=== PATIENT | female | born 1955 | race Caucasian/White ===

== ENCOUNTER → 2019-10-16 12:02 | Outpatient (BNVA) | payer MEDICARE, MEDICAID, SELFPAY | PROVIDERS: Family Provider Nurse Practitioner Family; PCP Nurse Practitioner Family; Visit Provider Nurse Practitioner Family | DX: E11.9 Type 2 diabetes mellitus without complications (principal); E03.9 Hypothyroidism, unspecified; E83.42 Hypomagnesemia; J01.90 Acute sinusitis, unspecified | CPT/HCPCS: 36415; 80053; 80061; 81001; 82306; 83036; 83735; 84443; 85025 ==

== ENCOUNTER → 2019-11-14 11:26 | Outpatient (BNVA) | payer MEDICARE, MEDICAID, SELFPAY | PROVIDERS: Family Provider Nurse Practitioner Family; PCP Nurse Practitioner Family; Visit Provider Nurse Practitioner Family | DX: E11.628 Type 2 diabetes mellitus with other skin complications (principal); F41.9 Anxiety disorder, unspecified | CPT/HCPCS: 80053 ==

== ENCOUNTER → 2020-01-22 09:37 | Outpatient (BNVA) | payer MEDICARE, MEDICAID, SELFPAY | PROVIDERS: Family Provider Nurse Practitioner Family; PCP Nurse Practitioner Family; Visit Provider Nurse Practitioner Family | DX: I10 Essential (primary) hypertension (principal); E11.9 Type 2 diabetes mellitus without complications | CPT/HCPCS: 80053; 83036; 85025 ==

== ENCOUNTER → 2020-01-29 10:05 | Outpatient (BNVA) | payer MEDICARE, MEDICAID, SELFPAY | PROVIDERS: Family Provider Nurse Practitioner Family; PCP Nurse Practitioner Family; Visit Provider Nurse Practitioner Family | DX: I10 Essential (primary) hypertension (principal); E83.42 Hypomagnesemia; E03.9 Hypothyroidism, unspecified; E11.628 Type 2 diabetes mellitus with other skin complications; J32.9 Chronic sinusitis, unspecified; J44.9 Chronic obstructive pulmonary disease, unspecified; T78.40XA Allergy, unspecified, initial encounter; B37.3 Candidiasis of vulva and vagina | CPT/HCPCS: 36415; 83735; 84439; 84443; 84481 ==

== ENCOUNTER → 2020-02-21 08:56 | Outpatient (BNVA) | payer MEDICARE, MEDICAID, SELFPAY | PROVIDERS: Family Provider Nurse Practitioner Family; PCP Nurse Practitioner Family; Visit Provider Nurse Practitioner Family | DX: E11.628 Type 2 diabetes mellitus with other skin complications (principal) | CPT/HCPCS: 80053 ==

== ENCOUNTER → 2020-04-21 10:45 | Outpatient (BNVA) | payer MEDICARE, MEDICAID, SELFPAY | PROVIDERS: Family Provider Nurse Practitioner Family; PCP Nurse Practitioner Family; Visit Provider Nurse Practitioner Family | DX: E11.628 Type 2 diabetes mellitus with other skin complications (principal); I10 Essential (primary) hypertension; E83.42 Hypomagnesemia; E55.9 Vitamin D deficiency, unspecified; E78.5 Hyperlipidemia, unspecified; J01.90 Acute sinusitis, unspecified; E11.69 Type 2 diabetes mellitus with other specified complication; F41.9 Anxiety disorder, unspecified; F32.9 Major depressive disorder, single episode, unspecified; E03.9 Hypothyroidism, unspecified | CPT/HCPCS: 80053; 80061; 81001; 82306; 83036; 83735; 84443; 85025 ==

== ENCOUNTER → 2020-05-05 15:25 | Outpatient (BNVA) | payer MEDICARE, MEDICAID, SELFPAY | PROVIDERS: Family Provider Nurse Practitioner Family; PCP Nurse Practitioner Family; Visit Provider Nurse Practitioner Family | DX: E11.628 Type 2 diabetes mellitus with other skin complications (principal) | CPT/HCPCS: 80053; 85025 ==

== ENCOUNTER → 2020-05-20 08:40 | Outpatient (BNVA) | payer MEDICARE, MEDICAID, SELFPAY | PROVIDERS: Family Provider Nurse Practitioner Family; PCP Nurse Practitioner Family; Referring Provider Nurse Practitioner Family; Visit Provider Internal Medicine | DX: E11.40 Type 2 diabetes mellitus with diabetic neuropathy, unspecified (principal); E11.65 Type 2 diabetes mellitus with hyperglycemia; E03.9 Hypothyroidism, unspecified; E66.9 Obesity, unspecified; E78.5 Hyperlipidemia, unspecified; I10 Essential (primary) hypertension; R61 Generalized hyperhidrosis | CPT/HCPCS: 99204 ==

== ENCOUNTER → 2020-07-02 08:13 | Outpatient (BNVA) | payer MEDICARE, MEDICAID, SELFPAY | PROVIDERS: Family Provider Nurse Practitioner Family; PCP Nurse Practitioner Family; Visit Provider Internal Medicine | DX: E03.9 Hypothyroidism, unspecified (principal); E11.40 Type 2 diabetes mellitus with diabetic neuropathy, unspecified; E11.65 Type 2 diabetes mellitus with hyperglycemia; E78.5 Hyperlipidemia, unspecified; I10 Essential (primary) hypertension; R10.84 Generalized abdominal pain; R11.0 Nausea; U07.1 COVID-19 | CPT/HCPCS: 99215 ==

== ENCOUNTER 2020-07-02 09:26 | Outpatient (CLI) | payer MEDICARE, MEDICAID, SELFPAY ==
[2020-07-02 10:23] LABS: Alanine Aminotransferase 26 U/L (0-33); Albumin Level 4.4 g/dL (3.5-5.2); Alkaline Phosphatase 87 IU/L (35-105); Anion Gap 19.4 (5-19); Aspartate Amino Transferase 30 U/L (0-32); Blood Urea Nitrogen 13 mg/dL (8-23); Calcium 10.8 mg/dL (8.5-10.5); Carbon Dioxide 26 mmol/L (22-29); Chloride 92 mmol/L (98-107); Globulin 3.2 g/dL (1.3-4.6); Glomerular Filtration Rate 49.8 mL/min (90-130); Glucose 128 mg/dL (65-115); Lipase 78 U/L (13-60); Osmolality Calculated 280 mOsm/kg (285-295); Potassium 3.4 mmol/L (3.5-5.1); Sodium 134 mmol/L (136-145); Total Bilirubin 0.4 mg/dL (0.15-1.2); Total Protein 7.6 g/dL (6.6-8.7)
== END 2020-07-02 09:27 | disposition home or self-care (01) ==
LOC: LAB 09:29
PROVIDERS: PCP Nurse Practitioner Family; Visit Provider Internal Medicine
DX: E11.628 Type 2 diabetes mellitus with other skin complications (principal); E11.40 Type 2 diabetes mellitus with diabetic neuropathy, unspecified; E11.65 Type 2 diabetes mellitus with hyperglycemia; R10.84 Generalized abdominal pain
CPT/HCPCS: 36415; 80053; 82010; 83690

== ENCOUNTER → 2020-07-14 08:37 | Outpatient (BNVA) | payer MEDICARE, MEDICAID, SELFPAY | PROVIDERS: PCP Nurse Practitioner Family; Visit Provider Internal Medicine Nephrology | DX: N18.30 Chronic kidney disease, stage 3 unspecified (principal); Z79.899 Other long term (current) drug therapy | CPT/HCPCS: 80069; 82043; 82310; 83970; 85007; 85027 ==

== ENCOUNTER → 2020-07-27 11:09 | Outpatient (BNVA) | payer MEDICARE, MEDICAID, SELFPAY | PROVIDERS: PCP Nurse Practitioner Family; Visit Provider Nurse Practitioner Family | DX: E11.628 Type 2 diabetes mellitus with other skin complications (principal); E11.40 Type 2 diabetes mellitus with diabetic neuropathy, unspecified; E11.65 Type 2 diabetes mellitus with hyperglycemia; R10.84 Generalized abdominal pain | CPT/HCPCS: 80053; 82043; 82607; 85025 ==

== ENCOUNTER → 2020-07-29 09:10 | Outpatient (BNVA) | payer MEDICARE, MEDICAID, SELFPAY | PROVIDERS: PCP Nurse Practitioner Family; Visit Provider Internal Medicine | DX: E03.9 Hypothyroidism, unspecified (principal); E11.40 Type 2 diabetes mellitus with diabetic neuropathy, unspecified; E11.65 Type 2 diabetes mellitus with hyperglycemia | CPT/HCPCS: 99213 ==

== ENCOUNTER → 2020-09-01 09:31 | Outpatient (BNVA) | payer MEDICARE, MEDICAID, SELFPAY | PROVIDERS: PCP Nurse Practitioner Family; Visit Provider Nurse Practitioner Family | DX: M54.6 Pain in thoracic spine (principal); M19.049 Primary osteoarthritis, unspecified hand; E03.9 Hypothyroidism, unspecified; E11.40 Type 2 diabetes mellitus with diabetic neuropathy, unspecified; E11.65 Type 2 diabetes mellitus with hyperglycemia; M54.9 Dorsalgia, unspecified | CPT/HCPCS: 83036; 84439; 84443 ==

== ENCOUNTER → 2020-09-22 09:04 | Outpatient (BNVA) | payer MEDICARE, MEDICAID, SELFPAY | PROVIDERS: PCP Nurse Practitioner Family; Visit Provider Internal Medicine | DX: M79.643 Pain in unspecified hand (principal); Z11.59 Encounter for screening for other viral diseases; Z79.899 Other long term (current) drug therapy; M17.10 Unilateral primary osteoarthritis, unspecified knee; G89.29 Other chronic pain; M54.2 Cervicalgia; M54.9 Dorsalgia, unspecified; Z87.891 Personal history of nicotine dependence | CPT/HCPCS: 36415; 80053; 82550; 82728; 83540; 85025; 85651; 86140; 86431; 86704; 86803; 86812; 87340; 99204 ==

== ENCOUNTER → 2020-10-08 08:55 | Outpatient (BNVA) | payer MEDICARE, MEDICAID, SELFPAY | PROVIDERS: PCP Nurse Practitioner Family; Visit Provider Internal Medicine | DX: M19.90 Unspecified osteoarthritis, unspecified site (principal); M79.643 Pain in unspecified hand; R70.0 Elevated erythrocyte sedimentation rate; D72.829 Elevated white blood cell count, unspecified; Z87.891 Personal history of nicotine dependence | CPT/HCPCS: 99213 ==

== ENCOUNTER → 2020-10-26 10:12 | Outpatient (BNVA) | payer MEDICARE, MEDICAID, SELFPAY | PROVIDERS: PCP Nurse Practitioner Family; Visit Provider Internal Medicine | DX: E03.9 Hypothyroidism, unspecified (principal); E04.1 Nontoxic single thyroid nodule; E11.40 Type 2 diabetes mellitus with diabetic neuropathy, unspecified; E11.65 Type 2 diabetes mellitus with hyperglycemia; E83.52 Hypercalcemia; D72.829 Elevated white blood cell count, unspecified; R70.0 Elevated erythrocyte sedimentation rate; M79.643 Pain in unspecified hand; M19.90 Unspecified osteoarthritis, unspecified site; Z87.891 Personal history of nicotine dependence | CPT/HCPCS: 99213; 99215 ==

== ENCOUNTER 2020-10-29 06:00 | Outpatient (RCR) | payer MEDICARE, MEDICAID, SELFPAY | END 2020-11-15 23:59 | disposition home or self-care (01) | LOC: WPT 06:00 | PROVIDERS: PCP Nurse Practitioner Family; Referring Provider Orthopaedic Surgery; Visit Provider Orthopaedic Surgery | DX: Z47.1 Aftercare following joint replacement surgery (principal); Z96.651 Presence of right artificial knee joint | CPT/HCPCS: 97110; 97112; 97163 ==

== ENCOUNTER → 2020-11-10 09:49 | Outpatient (BNVA) | payer MEDICARE, MEDICAID, SELFPAY | PROVIDERS: PCP Nurse Practitioner Family; Visit Provider Nurse Practitioner Family | DX: E83.52 Hypercalcemia (principal) | CPT/HCPCS: 80053 ==

== ENCOUNTER 2020-11-16 06:00 | Outpatient (RCR) | payer MEDICARE, MEDICAID, SELFPAY | END 2020-12-16 23:59 | disposition home or self-care (01) | LOC: WPT 06:00 | PROVIDERS: PCP Nurse Practitioner Family; Referring Provider Orthopaedic Surgery; Visit Provider Orthopaedic Surgery | DX: Z47.1 Aftercare following joint replacement surgery (principal); Z96.651 Presence of right artificial knee joint | CPT/HCPCS: 97110; 97112; 97530 ==

== ENCOUNTER 2020-12-17 06:00 | Outpatient (RCR) | payer MEDICARE, MEDICAID, SELFPAY | END 2021-01-15 23:59 | disposition home or self-care (01) | LOC: WPT 06:00 | PROVIDERS: PCP Nurse Practitioner Family; Referring Provider Orthopaedic Surgery; Visit Provider Orthopaedic Surgery | DX: Z47.1 Aftercare following joint replacement surgery (principal); Z96.651 Presence of right artificial knee joint | CPT/HCPCS: 97110 ==

== ENCOUNTER → 2021-01-26 09:33 | Outpatient (BNVA) | payer MEDICARE, MEDICAID, SELFPAY | PROVIDERS: PCP Nurse Practitioner Family; Visit Provider Nurse Practitioner Family | DX: R70.0 Elevated erythrocyte sedimentation rate (principal); E11.628 Type 2 diabetes mellitus with other skin complications; I10 Essential (primary) hypertension; E11.40 Type 2 diabetes mellitus with diabetic neuropathy, unspecified; E11.65 Type 2 diabetes mellitus with hyperglycemia; E11.69 Type 2 diabetes mellitus with other specified complication; E78.5 Hyperlipidemia, unspecified; E04.1 Nontoxic single thyroid nodule; D64.9 Anemia, unspecified; E55.9 Vitamin D deficiency, unspecified; E03.9 Hypothyroidism, unspecified; Z13.6 Encounter for screening for cardiovascular disorders; Z79.899 Other long term (current) drug therapy | CPT/HCPCS: 80053; 80061; 81003; 82043; 82306; 82607; 83036; 83550; 83735; 83921; 84100; 84443; 85025; 85651; 86140 ==

== ENCOUNTER → 2021-02-01 08:16 | Outpatient (BNVA) | payer MEDICARE, MEDICAID, SELFPAY | PROVIDERS: PCP Nurse Practitioner Family; Visit Provider Internal Medicine | DX: M19.90 Unspecified osteoarthritis, unspecified site (principal); M79.643 Pain in unspecified hand; R79.0 Abnormal level of blood mineral; E55.9 Vitamin D deficiency, unspecified; Z87.891 Personal history of nicotine dependence | CPT/HCPCS: 99213; 99214 ==

== ENCOUNTER → 2021-03-11 12:10 | Outpatient (BNVA) | payer MEDICARE, MEDICAID, SELFPAY | PROVIDERS: PCP Nurse Practitioner Family; Visit Provider Nurse Practitioner Family | DX: R06.02 Shortness of breath (principal); E34.9 Endocrine disorder, unspecified; J44.9 Chronic obstructive pulmonary disease, unspecified; R07.81 Pleurodynia; I70.0 Atherosclerosis of aorta | CPT/HCPCS: 71046; 80053; 82310; 83970; 85025 ==

== ENCOUNTER → 2021-05-13 09:26 | Outpatient (BNVA) | payer MEDICARE, MEDICAID, SELFPAY | PROVIDERS: PCP Nurse Practitioner Family; Visit Provider Nurse Practitioner Family | DX: E55.9 Vitamin D deficiency, unspecified (principal); M19.049 Primary osteoarthritis, unspecified hand; M19.90 Unspecified osteoarthritis, unspecified site; R70.0 Elevated erythrocyte sedimentation rate; R79.0 Abnormal level of blood mineral; R79.89 Other specified abnormal findings of blood chemistry; Z79.899 Other long term (current) drug therapy; M25.50 Pain in unspecified joint | CPT/HCPCS: 80053; 85025; 85651; 86140 ==

== ENCOUNTER → 2021-05-27 09:28 | Outpatient (BNVA) | payer MEDICARE, MEDICAID, SELFPAY | PROVIDERS: PCP Nurse Practitioner Family; Visit Provider Internal Medicine | DX: E11.40 Type 2 diabetes mellitus with diabetic neuropathy, unspecified (principal); E11.65 Type 2 diabetes mellitus with hyperglycemia; Z79.84 Long term (current) use of oral hypoglycemic drugs; R70.0 Elevated erythrocyte sedimentation rate; M19.90 Unspecified osteoarthritis, unspecified site; M54.9 Dorsalgia, unspecified | CPT/HCPCS: 99214 ==

== ENCOUNTER 2021-06-03 07:56 | Outpatient (CLI) | payer MEDICARE, MEDICAID, SELFPAY ==
--- NOTE | 2021-06-03 08:33 | XR_ITS ---
WS: [id number] LUMBAR SPINE TECHNIQUE: 7 views of the lumbar spine CLINICAL INFORMATION: M54.9 - Dorsalgia, unspecified COMPARISON: None. FINDINGS: Mild lumbar curve convex right. Moderate spondylitic changes. Cholecystectomy clips. Osteopenia. Aort ic calcification. Disc space narrowing worse L5-S1. Advanced facet arthropathy L5-S1 with bony forami nal narrowing. Normal alignment on the neutral view. No instability on flexion-extension. XR/XR lumbar spine 6V w f/e [id number] IMPRESSION: 1. No instability on flexion-extension. 2. Disc space narrowing worse L5-S1. 3. Advanced arthropathy L5-S1. 4. Osteopenia.
--- NOTE | 2021-06-03 08:33 | XR_ITS ---
WS: [id number] KNEE RIGHT TECHNIQUE: 3 views of the right knee CLINICAL INFORMATION: M25.561 - Pain in right knee COMPARISON: None. FINDINGS: Postoperative changes right TKA. Patellar resurfacing. Moderate suprapatellar effusion with soft tiss ue edema. Hardware appears well seated. No evidence of loosening. XR/XR knee RT 3V* [id number] IMPRESSION: 1. Postoperative changes right TKA. No evidence of hardware loosening. 2. Soft tissue edema with moderate suprapatellar effusion. Kellgren-Fady Classification: NA
--- NOTE | 2021-06-03 08:33 | XR_ITS ---
WS: [id number] THORACIC SPINE TECHNIQUE: 3 views of the thoracic spine CLINICAL INFORMATION: M54.6 - Pain in thoracic spine COMPARISON: None. FINDINGS: Mild thoracic curve. Hypertrophic changes thoracic spine. Mild to moderate spondylitic changes thorac ic spine. No acute appearing compression fractures. Partially visualized reversed right shoulder arth roplasty. XR/XR thoracic spine 3V* [id number] IMPRESSION: 1. Mild thoracic curve with hypertrophic changes thoracic spine. 2. No acute thoracic spine findings.
== END 2021-06-03 07:57 | disposition home or self-care (01) ==
PROVIDERS: PCP Nurse Practitioner Family; Visit Provider Nurse Practitioner Family
DX: M25.561 Pain in right knee (principal); M54.5 Low back pain; M54.6 Pain in thoracic spine; M12.88 Other specific arthropathies, not elsewhere classified, other specified site; M85.88 Other specified disorders of bone density and structure, other site; Z96.651 Presence of right artificial knee joint; R60.0 Localized edema; M25.461 Effusion, right knee
CPT/HCPCS: 72072; 72114; 73562

== ENCOUNTER → 2021-07-29 08:54 | Outpatient (BNVA) | payer MEDICARE, MEDICAID, SELFPAY | PROVIDERS: PCP Nurse Practitioner Family; Visit Provider Internal Medicine | DX: E11.69 Type 2 diabetes mellitus with other specified complication (principal); E11.628 Type 2 diabetes mellitus with other skin complications; E11.40 Type 2 diabetes mellitus with diabetic neuropathy, unspecified; E11.65 Type 2 diabetes mellitus with hyperglycemia; E03.9 Hypothyroidism, unspecified; E04.1 Nontoxic single thyroid nodule; E78.5 Hyperlipidemia, unspecified; E83.52 Hypercalcemia; Z79.84 Long term (current) use of oral hypoglycemic drugs; Z87.891 Personal history of nicotine dependence | CPT/HCPCS: 99214 ==

== ENCOUNTER → 2021-07-30 08:57 | Outpatient (BNVA) | payer MEDICARE, MEDICAID, SELFPAY | PROVIDERS: PCP Nurse Practitioner Family; Visit Provider Internal Medicine | DX: E11.69 Type 2 diabetes mellitus with other specified complication (principal); E03.9 Hypothyroidism, unspecified; E78.5 Hyperlipidemia, unspecified; E11.628 Type 2 diabetes mellitus with other skin complications; M19.90 Unspecified osteoarthritis, unspecified site; M25.50 Pain in unspecified joint; Z79.899 Other long term (current) drug therapy | CPT/HCPCS: 80053; 80061; 83036; 84439; 84443; 85025; 85651; 86140 ==

== ENCOUNTER → 2021-08-25 08:58 | Outpatient (BNVA) | payer MEDICARE, MEDICAID, SELFPAY | PROVIDERS: PCP Nurse Practitioner Family; Visit Provider Internal Medicine | DX: E11.40 Type 2 diabetes mellitus with diabetic neuropathy, unspecified (principal); E11.65 Type 2 diabetes mellitus with hyperglycemia; Z79.84 Long term (current) use of oral hypoglycemic drugs; M19.90 Unspecified osteoarthritis, unspecified site; R70.0 Elevated erythrocyte sedimentation rate; M54.9 Dorsalgia, unspecified; Z79.899 Other long term (current) drug therapy; Z87.891 Personal history of nicotine dependence | CPT/HCPCS: 99214 ==

== ENCOUNTER → 2021-09-02 10:19 | Outpatient (BNVA) | payer MEDICARE, MEDICAID, SELFPAY | PROVIDERS: PCP Nurse Practitioner Family; Visit Provider Nurse Practitioner Family | DX: E83.42 Hypomagnesemia (principal); E11.40 Type 2 diabetes mellitus with diabetic neuropathy, unspecified; E11.65 Type 2 diabetes mellitus with hyperglycemia; E11.628 Type 2 diabetes mellitus with other skin complications | CPT/HCPCS: 80053; 81003; 83690; 83735; 85025; 87400; 87635 ==

== ENCOUNTER → 2021-09-20 14:59 | Outpatient (BNVA) | payer MEDICARE, MEDICAID, SELFPAY | PROVIDERS: PCP Nurse Practitioner Family; Visit Provider Nurse Practitioner Family | DX: R68.89 Other general symptoms and signs (principal); J01.90 Acute sinusitis, unspecified | CPT/HCPCS: 87400; 87635 ==

== ENCOUNTER → 2021-11-01 08:34 | Outpatient (BNVA) | payer MEDICARE, MEDICAID, SELFPAY | PROVIDERS: PCP Nurse Practitioner Family; Visit Provider Internal Medicine | DX: E11.40 Type 2 diabetes mellitus with diabetic neuropathy, unspecified (principal); E11.65 Type 2 diabetes mellitus with hyperglycemia; E04.1 Nontoxic single thyroid nodule; E03.9 Hypothyroidism, unspecified; E83.52 Hypercalcemia; Z79.84 Long term (current) use of oral hypoglycemic drugs; Z87.891 Personal history of nicotine dependence | CPT/HCPCS: 99214 ==

== ENCOUNTER → 2022-01-11 09:25 | Outpatient (BNVA) | payer MEDICARE, MEDICAID, SELFPAY | PROVIDERS: PCP Nurse Practitioner Family; Visit Provider Nurse Practitioner | DX: R60.9 Edema, unspecified (principal); E03.9 Hypothyroidism, unspecified; E04.1 Nontoxic single thyroid nodule; E11.65 Type 2 diabetes mellitus with hyperglycemia; E11.40 Type 2 diabetes mellitus with diabetic neuropathy, unspecified; E83.52 Hypercalcemia | CPT/HCPCS: 82607; 83036; 84439; 84443 ==

== ENCOUNTER → 2022-01-31 08:12 | Outpatient (BNVA) | payer MEDICARE, MEDICAID, SELFPAY | PROVIDERS: PCP Nurse Practitioner Family; Visit Provider Internal Medicine | DX: E04.1 Nontoxic single thyroid nodule (principal); E83.52 Hypercalcemia; E03.9 Hypothyroidism, unspecified; E11.40 Type 2 diabetes mellitus with diabetic neuropathy, unspecified; E11.65 Type 2 diabetes mellitus with hyperglycemia; Z79.84 Long term (current) use of oral hypoglycemic drugs | CPT/HCPCS: 99214 ==

== ENCOUNTER 2022-04-11 11:03 | Outpatient (CLI) | payer MEDICARE, MEDICAID, SELFPAY | END 2022-04-11 11:04 | disposition home or self-care (01) | LOC: RAD 04-12 14:47 | PROVIDERS: Visit Provider Internal Medicine | DX: E03.9 Hypothyroidism, unspecified (principal); E11.65 Type 2 diabetes mellitus with hyperglycemia; E11.628 Type 2 diabetes mellitus with other skin complications; E11.40 Type 2 diabetes mellitus with diabetic neuropathy, unspecified; E83.52 Hypercalcemia; E04.1 Nontoxic single thyroid nodule; Z79.84 Long term (current) use of oral hypoglycemic drugs | CPT/HCPCS: 80061; 83036; 84439; 84443; 99214 ==

== ENCOUNTER → 2022-04-20 10:54 | Outpatient (BNVA) | payer MEDICARE, MEDICAID, SELFPAY | PROVIDERS: Visit Provider Family Medicine | DX: M19.041 Primary osteoarthritis, right hand (principal); M79.641 Pain in right hand | CPT/HCPCS: 73120 ==

== ENCOUNTER → 2022-05-18 11:41 | Outpatient (BNVA) | payer MEDICARE, MEDICAID, SELFPAY | PROVIDERS: Visit Provider Internal Medicine | DX: E03.9 Hypothyroidism, unspecified (principal); E04.1 Nontoxic single thyroid nodule; E11.40 Type 2 diabetes mellitus with diabetic neuropathy, unspecified; E11.65 Type 2 diabetes mellitus with hyperglycemia; E83.52 Hypercalcemia | CPT/HCPCS: 82310; 83036; 83970 ==

== ENCOUNTER → 2022-05-24 10:48 | Outpatient (BNVA) | payer MEDICARE, MEDICAID, SELFPAY | PROVIDERS: PCP Nurse Practitioner; Visit Provider Internal Medicine | DX: E11.40 Type 2 diabetes mellitus with diabetic neuropathy, unspecified (principal); E11.65 Type 2 diabetes mellitus with hyperglycemia; E11.69 Type 2 diabetes mellitus with other specified complication; E11.628 Type 2 diabetes mellitus with other skin complications; M81.0 Age-related osteoporosis without current pathological fracture; E03.9 Hypothyroidism, unspecified; E04.1 Nontoxic single thyroid nodule; E21.0 Primary hyperparathyroidism; E78.5 Hyperlipidemia, unspecified; E55.9 Vitamin D deficiency, unspecified; Z79.84 Long term (current) use of oral hypoglycemic drugs | CPT/HCPCS: 99214 ==

== ENCOUNTER 2022-06-08 06:00 | Outpatient (RCR) | payer MEDICARE, MEDICAID, SELFPAY | END 2022-06-17 23:59 | disposition home or self-care (01) | LOC: WPT 06:00 | PROVIDERS: PCP Nurse Practitioner; Visit Provider Nurse Practitioner | DX: R42 Dizziness and giddiness (principal) | CPT/HCPCS: 97110; 97161 ==

== ENCOUNTER 2022-06-10 06:36 | Outpatient (CLI) | payer MEDICARE, MEDICAID, SELFPAY ==
[2022-06-10 06:53] VITALS: BMI 37.5
--- NOTE | 2022-06-10 06:56 | ECG_ITS ---
[facility] Test Date: 2022-06-10 Pat Name: Yaritza Fairbanks Department: Room: Gender: Female [employer]: : 1955 Requested By: Ana Connolly Order Number: [id number] Neli MD: Ana Connolly M.D. Interpretive Statements NAME OF STUDY: LEXISCAN SESTAMIBI STRESS TEST INDICATION: Chest Pain PROCEDURE: At the baseline, the blood pressure was 137/70 mmHg, oxygen saturation 91% with a heart rate of 72 bpm. The electrocardiogram showed normal sinus rhythm, normal axis with nonspecific ST changes. The Lexiscan was infused over a period of 20 seconds. A total of 0.4 milligrams of Lexiscan was infused. The stress phase was continued for a total of 5 minutes. Heart rate at the end of the stress phase was 83 bpm, oxygen saturation 96% with a blood pressure of 135/69 mm. The EKG at the peak infusion revealed sinus rhythm with no significant ST-T wave changes. The study was terminated due to protocol completion. Sestamibi was injected 20 seconds after the Lexiscan infusion. Blood pressure at the end of the recovery phase was 130/67 mmHg, oxygen saturation 96% with a heart rate of 82 beats per minute. CONCLUSION: 1. No significant EKG changes with the LexiScan infusion. 2. No LexiScan induced chest pain or cardiac arrhythmia. 3. Normal blood pressure and heart rate response. 4. Sestamibi/sestamibi perfusion scan pending; see separate report. Electronically Signed On 06-13-2022 12:55:45 CDT by Ana Connolly M.D. [email or web address]
--- NOTE | 2022-06-10 06:56 | NMCV_ITS ---
NM ferdinand perf SPECT r/s* [id number] Yaritza Fairbanks Age: 66 Gender: F : 1955 Exam Date: 06/10/2022 08:04 Ordering Phys: Ana Connolly MD ([email or web address]) Technologist: KRYSTYNA Cota Exam Location: [facility] Indications: CHEST PAIN STRESS TEST Please see separate stress test report in [facility] for full findings IMAGE PROTOCOL Rest/Stress 1 Lexiscan Day Radiopharmaceutical Dose (mCi) Administration Site Administered by Rest: Tc-99m 10.8 IV KRYSTYNA Tracy Sestamibi Stress:Tc-99m 32.9 IV KRYSTYNA Tracy Sestamibi Rest: 10-Jun-2022 60 Discovery 630 Stress: 10-Jun-2022 30 Discovery 630 0.4mg Lexiscan. Images obtained in supine and prone position. SPECT RESULTS Technical Quality: Excellent Raw Data Analysis: Normal Image Corrections: No attenuation or motion correction applied Summed Stress Score: 5 Summed Rest Score: 8 Summed Difference Score: 0 PERFUSION FINDINGS Small sized perfusion abnormality of mild severity of mid to apical inferolateral, mid to apical inferior and apical wall on rest images with improved tracer uptake in inferior lateral inferior banuelos on stress images. FUNCTIONAL RESULTS (calculated via Gated SPECT) Stress Image LV EF (%): 64 Stress EDV (mL):86 TID: 0.9 Stress ESV (mL):31 FUNCTIONAL FINDINGS: The left ventricle is normal in size. Transient Ischemia Dilatation of 0.9. There is normal left ventricular systolic function. The left ventricular ejection fraction is normal with a value of 64%. There is normal left ventricular wall thickening. Normal end-diastolic and end-systolic volumes. IMPRESSIONS 1. Myocardial perfusion imaging is normal. Attenuation artifact noted in inferior and inferolateral banuelos. 2. Overall left ventricular systolic function is normal without regional wall motion abnormalities, LVEF=64%. 3. No EKG changes with Lexiscan infusion. Refer to separate report for details. Ana Connolly MD (Electronically Signed) Final Date: 13 June 2022 13:06 S
[2022-06-10] MEDS: regadenoson 0.4 Mg/5 ml Syringe IVP (10:35)
[2022-06-10 10:49] VITALS: BP 130/65; PULSE 63
== END 2022-06-10 06:37 | disposition home or self-care (01) ==
LOC: CDL 06:40
PROVIDERS: PCP Nurse Practitioner; Visit Provider Internal Medicine Cardiovascular Disease
DX: R07.9 Chest pain, unspecified (principal); R42 Dizziness and giddiness; R53.83 Other fatigue; R06.02 Shortness of breath; I35.8 Other nonrheumatic aortic valve disorders
CPT/HCPCS: 78452; 93017; 93306; A9500; J2785

== ENCOUNTER 2022-06-10 06:42 | Outpatient (CLI) | payer MEDICARE, MEDICAID, SELFPAY ==
--- NOTE | 2022-06-10 08:00 | USCV_ITS ---
Magdi Yaritza Age: 66 Gender: F : 1955 Exam Date: 06/10/2022 07:26 Ordering Phys: Marcie HermosilloP SANITARY CHEMIST Technologist: Bib Powell [place] [facility] [place]: chest pain short of breath BP: 140 / 84 HR: 72 Rhythm: Sinus Technical Quality: Adequate MEASUREMENTS (Male / Female) Normal Values 2D ECHO LV Diastolic Diameter PLAX 5.0 cm 4.2 - 5.9 / 3.9 - 5.3 cm LV Systolic Diameter PLAX 2.8 cm IVS Diastolic Thickness 0.9 cm 0.6 - 1.0 / 0.6 - 0.9 cm IVS Systolic Thickness 1.4 cm LVPW Diastolic Thickness 1.1 cm 0.6 - 1.0 / 0.6 - 0.9 cm LVPW Systolic Thickness 1.3 cm LVOT Diameter 2.0 cm LV Ejection Fraction 2D Teich 76.0 % LV Ejection Fraction MOD 2C 72.1 % LV Ejection Fraction 2C AL 71.6 % LA Diameter 3.2 cm M-MODE Aortic Annulus Diameter 3.1 cm LA Ao Ratio MM 1.1 MV E Point Septal Separation 1.6 cm DOPPLER AV Peak Velocity 145.0 cm/s LVOT Peak Velocity 98.0 cm/s AV Area Cont Eq vti 2.0 cm squared AV Area Cont Eq pk 2.2 cm squared MV Area PHT 5.0 cm squared Mitral E to A Ratio 0.6 MV E' Velocity 42.0 cm/s Mitral E to MV E' Ratio 8.2 Mitral E to LV E' Lateral Ratio 8.6 Mitral E to LV E' Septal Ratio 8.0 TR Peak Velocity 220.0 cm/s TR Peak Gradient 19.4 mmHg TV Peak E Velocity 85.0 cm/s Right Atrial Pressure 3.0 mmHg Pulmonary Artery Systolic Pressu 22.4 mmHg RV Acceleration Time 0.1 s FINDINGS Left Ventricle Normal left ventricular size and systolic function, EF 66 %. Relative hypokinesis of the mid and apical septum and apical septal segments.Grade I/IV diastolic dysfunction (abnormal relaxation filling pattern), normal to mildly elevated filling pressures. Right Ventricle The right ventricle is normal in size and function. Right Atrium The right atrium is normal in size. Left Atrium The left atrium is normal in size. Mitral Valve No gross abnormalities noted Aortic Valve Thickened aortic valve. Tricuspid Valve Trace tricuspid valve regurgitation. Pulmonic Valve No gross abnormalities noted Pericardium No pericardial effusion. Aorta Normal ascending aorta dimension. IVC Inferior vena cava not visualized. CONCLUSIONS Normal left ventricular size and systolic function, EF 66 %. Relative hypokinesis of the mid and apical septum and apical septal segments.Grade I/IV diastolic dysfunction (abnormal relaxation filling pattern), normal to mildly elevated filling pressures. Thickened aortic valve. Estimated pulmonary artery peak systolic pressure of 22 mmHg There is no pericardial effusion. There are no intracardiac masses. No previous study is available for comparison. Dr Felipe Caballero MD FACC (Electronically Signed) Final Date: 10 June 2022 19:33 S
== END 2022-06-10 06:43 | disposition home or self-care (01) ==
LOC: RAD 06:44
PROVIDERS: PCP Nurse Practitioner; Visit Provider Nurse Practitioner
DX: R42 Dizziness and giddiness (principal); R53.83 Other fatigue; R07.9 Chest pain, unspecified; R06.02 Shortness of breath; I35.8 Other nonrheumatic aortic valve disorders
CPT/HCPCS: 93306

== ENCOUNTER 2022-06-18 06:00 | Outpatient (RCR) | payer MEDICARE, MEDICAID, SELFPAY | END 2022-07-18 23:59 | disposition home or self-care (01) | LOC: WPT 06:00 | PROVIDERS: PCP Nurse Practitioner; Visit Provider Nurse Practitioner | DX: R42 Dizziness and giddiness (principal) | CPT/HCPCS: 95992 ==

== ENCOUNTER → 2022-07-11 14:39 | Outpatient (BNVA) | payer MEDICARE, MEDICAID, SELFPAY | PROVIDERS: PCP Nurse Practitioner; Visit Provider Internal Medicine Cardiovascular Disease | DX: R00.2 Palpitations (principal); I12.9 Hypertensive chronic kidney disease with stage 1 through stage 4 chronic kidney disease, or unspecified chronic kidney disease; E11.22 Type 2 diabetes mellitus with diabetic chronic kidney disease; E11.65 Type 2 diabetes mellitus with hyperglycemia; N18.9 Chronic kidney disease, unspecified; Z87.891 Personal history of nicotine dependence; Z79.84 Long term (current) use of oral hypoglycemic drugs; E11.40 Type 2 diabetes mellitus with diabetic neuropathy, unspecified; E11.69 Type 2 diabetes mellitus with other specified complication; E78.5 Hyperlipidemia, unspecified | CPT/HCPCS: 99214 ==

== ENCOUNTER → 2022-07-25 08:43 | Outpatient (BNVA) | payer MEDICARE, MEDICAID, SELFPAY | PROVIDERS: PCP Nurse Practitioner; Visit Provider Internal Medicine Cardiovascular Disease | DX: R00.2 Palpitations (principal); R06.02 Shortness of breath; R79.0 Abnormal level of blood mineral | CPT/HCPCS: 80053; 83735; 83880; 84443 ==

== ENCOUNTER 2022-08-16 06:00 | Outpatient (RCR) | payer MEDICARE, MEDICAID, SELFPAY | END 2022-08-17 23:59 | disposition home or self-care (01) | LOC: WPT 06:00 | PROVIDERS: PCP Nurse Practitioner; Visit Provider Nurse Practitioner | DX: M54.9 Dorsalgia, unspecified (principal) | CPT/HCPCS: 97110; 97161 ==

== ENCOUNTER 2022-08-18 06:00 | Outpatient (RCR) | payer MEDICARE, MEDICAID, SELFPAY | END 2022-09-17 23:59 | disposition home or self-care (01) | LOC: WPT 06:00 | PROVIDERS: PCP Nurse Practitioner; Visit Provider Nurse Practitioner | DX: M54.9 Dorsalgia, unspecified (principal) | CPT/HCPCS: 97110; 97112; 97530 ==

== ENCOUNTER → 2022-09-14 10:04 | Outpatient (BNVA) | payer MEDICARE, MEDICAID, SELFPAY | PROVIDERS: PCP Nurse Practitioner; Visit Provider Internal Medicine | DX: E11.40 Type 2 diabetes mellitus with diabetic neuropathy, unspecified (principal); E11.65 Type 2 diabetes mellitus with hyperglycemia; E11.628 Type 2 diabetes mellitus with other skin complications; R10.9 Unspecified abdominal pain; E03.9 Hypothyroidism, unspecified; E04.1 Nontoxic single thyroid nodule; E21.0 Primary hyperparathyroidism; Z79.890 Hormone replacement therapy | CPT/HCPCS: 36415; 83036; 83690; 99214 ==

== ENCOUNTER 2022-09-18 06:00 | Outpatient (RCR) | payer MEDICARE, MEDICAID, SELFPAY | END 2022-10-18 23:59 | disposition home or self-care (01) | LOC: WPT 06:00 | PROVIDERS: PCP Nurse Practitioner; Visit Provider Nurse Practitioner | DX: M54.9 Dorsalgia, unspecified (principal) | CPT/HCPCS: 97110; 97112; 97530 ==

== ENCOUNTER 2022-10-07 13:55 | Outpatient (CLI) | payer MEDICARE, MEDICAID, SELFPAY ==
--- NOTE | 2022-10-07 14:05 | XR_ITS ---
WS: [id number] DEXA (DUAL ENERGY X-RAY ABSORPTIOMETRY) Bone mineral density was performed using a Pinpoint MD machine. HISTORY: AGE RELATED OSTEOPOROSIS COMPARISON: 10/25/2018 Lumbar spine BMD (L1-L4): 1.160 g/cm2 T score: -0.2 Z score: 0.3 Total hip BMD: Left: 0.939 g/cm2. T score: -0.5 Z score: -0.1 Right: 0.941 g/cm2. T score: -0.5 Z score: -0.1 10 year probability of a major osteoporotic fracture is 12.5%. Compared to the prior study from 10/25/2018. Lumbar spine bone mineral density has increased by 10.3%. Bilateral hips bone mineral density has decreased by 2.3%. XR/XR DEXA axial skeleton* [id number] IMPRESSION: NORMAL BONE MINERAL DENSITY based upon the WHO classification for females. Sign ificant increase in bone mineral density within the lumbar spine. Significant decrease in bone mineral density within the hips.
== END 2022-10-07 13:56 | disposition home or self-care (01) ==
LOC: RAD 13:56
PROVIDERS: PCP Nurse Practitioner; Visit Provider Nurse Practitioner
DX: M81.0 Age-related osteoporosis without current pathological fracture (principal)
CPT/HCPCS: 77080

== ENCOUNTER 2022-10-26 08:51 | Outpatient (CLI) | payer MEDICARE, MEDICAID, SELFPAY ==
--- NOTE | 2022-10-26 09:02 | MR_ITS ---
WS: [id number] MRI LUMBAR SPINE NONCONTRAST HISTORY: M54.9 - Dorsalgia, unspecified COMPARISON: 03/12/2018 TECHNIQUE: Sagittal and axial multisequence imaging is submitted. Mild straightening of the normal lumbar lordosis. No acute fracture. Mild disc desiccation throughout. No fracture. Conus terminates normally at L1. L1-L2: Mild disc bulging with ligamentum flavum and facet arthritis. L2-L3: Annular disc bulge. Disc bulging is diffuse but asymmetric to the RIGHT. New since the prior s tudy. Encroachment upon the ventral thecal sac and subarticular recesses. Mild foraminal narrowing. G reatest encroachment upon the traversing L3 nerve roots. L3-L4: Mild disc bulging with ligamentum flavum and facet arthritis. Mild central and bilateral subar ticular recess stenosis and LEFT foraminal stenosis. L4-L5: Mild annular disc bulging with ligamentum flavum and facet arthritis. Moderate to severe LEFT foraminal stenosis due to combination of disc disease with facet and ligamentum flavum hypertrophy. M ild RIGHT foraminal stenosis. L5-S1: Moderate annular disc bulging encroaching upon the ventral thecal sac. Moderate RIGHT foramina l stenosis and mild LEFT foraminal stenosis due to combination of disc, facet and osteophyte disease. RIGHT foraminal stenosis has progressed. Retroperitoneal visualized soft tissues are normal. MR/MR lumbar spine wo con* [id number] IMPRESSION: 1. Progression of degenerative disc disease and facet arthritis throughout the lumbar spine since 03/12/2018. 2. Moderate annular disc bulging at L2-3 is new with encroachment upon the neli tral thecal sac and subarticular recesses. Greatest encroachment upon the trave rsing L3 nerve roots. 3. Mild central, bilateral subarticular recess and LEFT foraminal stenosis at L3-4. 4. Moderate to severe LEFT foraminal stenosis due to disc disease with possibl e treatment protrusion, facet and ligamentum flavum hypertrophy. Only mild sten osis on the RIGHT. 5. Moderate RIGHT foraminal stenosis at L5-S1 has progressed since the prior s tudy. Disc and osteophyte disease.
== END 2022-10-26 08:52 | disposition home or self-care (01) ==
LOC: RAD 08:55
PROVIDERS: PCP Nurse Practitioner; Visit Provider Nurse Practitioner
DX: M54.9 Dorsalgia, unspecified (principal)
CPT/HCPCS: 72148

== ENCOUNTER → 2022-11-08 08:01 | Outpatient (BNVA) | payer MEDICARE, MEDICAID, SELFPAY | PROVIDERS: PCP Nurse Practitioner; Referring Provider Nurse Practitioner; Visit Provider Orthopaedic Surgery | DX: M48.062 Spinal stenosis, lumbar region with neurogenic claudication (principal); M47.816 Spondylosis without myelopathy or radiculopathy, lumbar region; M41.9 Scoliosis, unspecified | CPT/HCPCS: 72110; 99204 ==

== ENCOUNTER → 2022-12-05 10:52 | Outpatient (BNVA) | payer MEDICARE, MEDICAID, SELFPAY | PROVIDERS: PCP Nurse Practitioner; Referring Provider Orthopaedic Surgery; Visit Provider Anesthesiology Pain Medicine | DX: M48.062 Spinal stenosis, lumbar region with neurogenic claudication (principal); M47.816 Spondylosis without myelopathy or radiculopathy, lumbar region; M79.605 Pain in left leg | CPT/HCPCS: 99204 ==

== ENCOUNTER → 2022-12-12 10:09 | Outpatient (BNVA) | payer MEDICARE, MEDICAID, SELFPAY | PROVIDERS: PCP Nurse Practitioner; Visit Provider Internal Medicine | DX: E11.628 Type 2 diabetes mellitus with other skin complications (principal); E11.40 Type 2 diabetes mellitus with diabetic neuropathy, unspecified; E11.65 Type 2 diabetes mellitus with hyperglycemia; E03.9 Hypothyroidism, unspecified; E04.1 Nontoxic single thyroid nodule; E21.0 Primary hyperparathyroidism; Z79.4 Long term (current) use of insulin; Z79.890 Hormone replacement therapy | CPT/HCPCS: 99214 ==

== ENCOUNTER → 2022-12-13 09:52 | Outpatient (BNVA) | payer MEDICARE, MEDICAID, SELFPAY | PROVIDERS: PCP Nurse Practitioner; Visit Provider Internal Medicine | DX: E21.0 Primary hyperparathyroidism (principal); E04.1 Nontoxic single thyroid nodule; E03.9 Hypothyroidism, unspecified; E11.9 Type 2 diabetes mellitus without complications; E11.40 Type 2 diabetes mellitus with diabetic neuropathy, unspecified; E11.65 Type 2 diabetes mellitus with hyperglycemia; E11.628 Type 2 diabetes mellitus with other skin complications | CPT/HCPCS: 80053; 80061; 82043; 82310; 83036; 83970; 84439; 84443; 84480 ==

== ENCOUNTER → 2022-12-21 14:06 | Outpatient (BNVA) | payer MEDICARE, MEDICAID, SELFPAY | PROVIDERS: PCP Nurse Practitioner; Visit Provider Anesthesiology Pain Medicine | DX: M54.16 Radiculopathy, lumbar region (principal); E11.40 Type 2 diabetes mellitus with diabetic neuropathy, unspecified; E11.65 Type 2 diabetes mellitus with hyperglycemia; Z79.4 Long term (current) use of insulin | CPT/HCPCS: 64483; 64484; J1100; J3490 ==

== ENCOUNTER 2023-01-16 07:44 | Outpatient (CLI) | payer MEDICARE, MEDICAID, SELFPAY ==
--- NOTE | 2023-01-16 08:00 | NM_ITS ---
WS: [id number] NUCLEAR MEDICINE GASTRIC STUDY CLINICAL INFORMATION: Abdominal Pain TECHNIQUE: Following oral ingestion of cooked egg mixed with 0.99 mCi technetium 99m sulfur colloid, anterior images of the stomach were obtained over the course of 90 minutes. Activity curve was perfor med over the course of 90 minutes with linear regression analysis. COMPARISON: None. FINDINGS: Oral ingestion of sulfur colloid egg mixture. Activity visualized in the proximal stomach. T1/2= 469minutes Only 3% emptying at 61 minutes 15% emptying at 120 minutes NM/[place] [id number] IMPRESSION: 1. Markedly delayed gastric emptying with T1/2= 469minutes 2. Findings compatible with delayed gastric emptying suspicious for gastropare sis *Normal median T1 half 90 minutes for solid egg meal (45-110 minutes). Delayed gastric retention is defined as 90% retained at 1 hour, 60% at 2 hour s, 30% at 3 hours, and 10% at 4 hours (normal percent gastric retention is 37-9 0% at 1 hour, 30-60% at 2 hours, and 0-10% at 4 hours).
== END 2023-01-16 07:45 | disposition home or self-care (01) ==
LOC: RAD 07:48
PROVIDERS: PCP Nurse Practitioner; Visit Provider Internal Medicine
DX: K30 Functional dyspepsia (principal); E11.40 Type 2 diabetes mellitus with diabetic neuropathy, unspecified; E11.65 Type 2 diabetes mellitus with hyperglycemia; E03.9 Hypothyroidism, unspecified; E83.52 Hypercalcemia; E04.1 Nontoxic single thyroid nodule; E21.0 Primary hyperparathyroidism; R10.9 Unspecified abdominal pain
CPT/HCPCS: 78264; A9541

== ENCOUNTER 2023-01-17 06:00 | Outpatient (RCR) | payer MEDICARE, MEDICAID, SELFPAY | END 2023-02-15 23:59 | disposition home or self-care (01) | LOC: WPT 06:00 | PROVIDERS: PCP Nurse Practitioner; Visit Provider Nurse Practitioner | DX: R42 Dizziness and giddiness (principal) | CPT/HCPCS: 97110; 97163 ==

== ENCOUNTER → 2023-02-14 11:17 | Outpatient (BNVA) | payer MEDICARE, MEDICAID, SELFPAY | PROVIDERS: PCP Nurse Practitioner; Visit Provider Nurse Practitioner | DX: R69 Illness, unspecified (principal); Z20.822 Contact with and (suspected) exposure to COVID-19 | CPT/HCPCS: 87400; 87426 ==

== ENCOUNTER → 2023-02-22 09:43 | Outpatient (BNVA) | payer MEDICARE, MEDICAID, SELFPAY | PROVIDERS: PCP Nurse Practitioner; Visit Provider Anesthesiology Pain Medicine | DX: M48.062 Spinal stenosis, lumbar region with neurogenic claudication (principal); M47.816 Spondylosis without myelopathy or radiculopathy, lumbar region | CPT/HCPCS: 99215 ==

== ENCOUNTER → 2023-03-07 09:15 | Outpatient (BNVA) | payer MEDICARE, MEDICAID, SELFPAY | PROVIDERS: PCP Nurse Practitioner; Visit Provider Nurse Practitioner | DX: R60.9 Edema, unspecified (principal); I10 Essential (primary) hypertension | CPT/HCPCS: 80053; 83880 ==

== ENCOUNTER → 2023-03-13 14:56 | Outpatient (BNVA) | payer MEDICARE, MEDICAID, SELFPAY | PROVIDERS: PCP Nurse Practitioner; Visit Provider Nurse Practitioner | DX: E03.9 Hypothyroidism, unspecified (principal); E11.40 Type 2 diabetes mellitus with diabetic neuropathy, unspecified; E11.65 Type 2 diabetes mellitus with hyperglycemia | CPT/HCPCS: 80053 ==

== ENCOUNTER → 2023-04-04 14:17 | Outpatient (BNVA) | payer MEDICARE, MEDICAID, SELFPAY | PROVIDERS: PCP Nurse Practitioner; Visit Provider Nurse Practitioner Family | DX: R31.9 Hematuria, unspecified (principal) | CPT/HCPCS: 81000 ==

== ENCOUNTER → 2023-04-05 10:17 | Outpatient (BNVA) | payer MEDICARE, MEDICAID, SELFPAY | PROVIDERS: PCP Nurse Practitioner; Visit Provider Nurse Practitioner Family | DX: R31.9 Hematuria, unspecified (principal) | CPT/HCPCS: 87077; 87086; 87184 ==

== ENCOUNTER → 2023-04-14 10:21 | Outpatient (BNVA) | payer MEDICARE, MEDICAID, SELFPAY | PROVIDERS: PCP Nurse Practitioner; Visit Provider Nurse Practitioner | DX: E11.628 Type 2 diabetes mellitus with other skin complications (principal); E03.9 Hypothyroidism, unspecified; E11.40 Type 2 diabetes mellitus with diabetic neuropathy, unspecified; E11.65 Type 2 diabetes mellitus with hyperglycemia; E11.9 Type 2 diabetes mellitus without complications | CPT/HCPCS: 80061; 82043; 82310; 83036; 83970; 84439; 84443; 84480 ==

== ENCOUNTER → 2023-04-17 12:55 | Outpatient (BNVA) | payer MEDICARE, MEDICAID, SELFPAY | PROVIDERS: PCP Nurse Practitioner; Visit Provider Internal Medicine | DX: E11.40 Type 2 diabetes mellitus with diabetic neuropathy, unspecified (principal); E11.65 Type 2 diabetes mellitus with hyperglycemia; E11.628 Type 2 diabetes mellitus with other skin complications; E03.9 Hypothyroidism, unspecified; E04.1 Nontoxic single thyroid nodule; E21.0 Primary hyperparathyroidism; R10.9 Unspecified abdominal pain; Z79.4 Long term (current) use of insulin; Z79.890 Hormone replacement therapy | CPT/HCPCS: 99214 ==

== ENCOUNTER 2023-04-18 11:52 | Emergency (ER) | payer MEDICARE, MEDICAID, SELFPAY ==
--- NOTE | 2023-04-18 | XRR_ITS ---
PROCEDURE INFORMATION: Exam: XR Right Humerus Exam date and time: 04/18/2023 12:23 PM Age: 67 years old Clinical indication: Injury or trauma; Fall; Blunt trauma (contusions or hematomas); Arm, upper; Right; Prior surgery; Surgery date: 6+ months; Surgery type: Not specified TECHNIQUE: Imaging protocol: Radiologic exam of the right humerus. Views: 2 or more views. COMPARISON: CR XR shoulder RT min 2V* [id number] 04/18/2023 12:18 PM FINDINGS: Bones/joints: There is a displaced fracture of the humeral diaphysis at the level of the distal end of the stem prosthesis. There is posterior displacement and angulation of the fracture. A BB like density projects over the mid diaphysis of the humerus distal to the fracture. Soft tissues: Normal. XR/[place] [id number] IMPRESSION: Fractured humerus.
[2023-04-18 11:59] VITALS: BP 159/83; PULSE 69; RESP 16; TEMP 36.6; O2SAT 98; BMI 44.6
--- NOTE | 2023-04-18 12:09 | XRR_ITS ---
PROCEDURE INFORMATION: Exam: XR Right Shoulder Exam date and time: 04/18/2023 12:18 PM Age: 67 years old Clinical indication: Injury or trauma; Fall; Blunt trauma (contusions or hematomas); Shoulder; Right; Prior surgery; Surgery date: 6+ months; Surgery type: Not specified; Additional info: Fall/trauma/pain TECHNIQUE: Imaging protocol: Radiologic exam of the right shoulder. Views: 2 or more views. COMPARISON: CR XR chest 2V* [id number] 03/11/2021 12:26 PM FINDINGS: Bones/joints: There is an intact right total reverse shoulder prosthesis. There is a fracture through the humerus at the level of the distal end of the stem as described on the right humerus report. The shoulder is otherwise unremarkable. Soft tissues: Normal. XR/XR shoulder RT min 2V* [id number] IMPRESSION: Humeral diaphyseal fracture.
[2023-04-18 12:15] VITALS: BP 179/102; PULSE 67; O2SAT 97
--- NOTE | 2023-04-18 12:33 | XRR_ITS ---
PROCEDURE INFORMATION: Exam: XR Left Wrist Exam date and time: 04/18/2023 12:38 PM Age: 67 years old Clinical indication: Injury or trauma; Fall; Blunt trauma (contusions or hematomas); Wrist; Left; Prior surgery; Surgery date: 6+ months; Surgery type: Not specified TECHNIQUE: Imaging protocol: Radiologic exam of the left wrist. Views: 3 or more views. COMPARISON: CR XR hand LT 2V [id number] 09/22/2020 2:06 PM FINDINGS: Bones/joints: No acute fracture. Severe degenerative changes are seen in the lateral wrist particularly at the 1st FCI joint. Mild radiocarpal degenerative changes are seen. There are partially visualized metallic plates attached to the radial and ulnar diaphyses. Soft tissues: Normal. XR/XR wrist LT min 3V* [id number] IMPRESSION: Nonacute findings.
--- NOTE | 2023-04-18 12:34 | ED_ITS ---
Documented by User: [email or web address] Sapp 04/18/23 13:52 HPI - Fall General: Chief Complaint: Fall Stated Complaint: Fall, Right Shoulder injury Time Seen by Provider: 04/18/23 12:08 Source: patient Mode of arrival: ambulatory Limitations: no limitations History of Present Illness: Patient is a 67-year-old female presents to ED today with a complaint of right shoulder/upper arm pain that she sustained just prior to arrival after an accidental trip and fall landing directly onto her right shoulder. She also complains of some minor left wrist pain. She states she has had a previous right shoulder fracture requiring hardware approximately 7 to 8 years ago. She recently underwent carpal tunnel surgery to the left wrist. Patient denies striking her head or LOC. She does not complain of neck or back pain. MD complaint: fall Onset (ago): hour(s) Fall from: standing Fall witnessed: yes, by bystander Place fall occurred: other (hospital) Loss of consciousness: None Prolonged down time: no Symptoms prior to fall: none Context: tripped/slipped Location of injury - extremities: Right: shoulder and arm Severity: severe Severity scale (1-10): 10 Associated symptoms-after fall: Reports no associated symptoms; Denies abdominal pain, chest pain, headache(s) or neck pain Review of Systems Const: Denies: fever(s), chills, body aches, fatigue or malaise Card: Denies: chest pain Resp: Denies: dyspnea GI: Denies: abdominal pain Musc: Reports: extremity pain (R humerus), extremity swelling (R humerus), joint pain (R shoulder, L wrist) and limited range of motion; Denies: neck pain, back pain, joint redness or joint warmth Neuro: Denies: headache(s), numbness in extremities, weakness in extremities or sensory changes PFS ED PFSH: Medical History Abdominal pain Acute bacterial otitis media Acute bacterial sinusitis Acute bacterial sinusitis po Anemia Anxiety and depression Arthritis of hand Bacterial sinusitis Breast cancer screening by mammogram Chronic kidney disease COPD (chronic obstructive pulmonary disease) Diabetic foot Patient is a diabetic with previous history of foot callous formations and under the care of a Ginning Operator. She would like to be referred to [facility] Ginning Operator, Dr. Melchor. Diarrhea DM II (diabetes mellitus, type II), controlled Patient has DM II for and extended time. She was controlled previously with Victoza but stopped due to abdominal pain. The abdominal pain resolved, but patient has continued elevated glucose. Patient was trialed with Trulicity, but glucose levels remained elevated. Trulicity was discontinued, and patient was started on Rybelsus and Jardiance and continued on Metformin. Patient referred to [facility] Endocrinology for evaluation and treatment. Elevated parathyroid hormone Fibromyalgia GERD (gastroesophageal reflux disease) Hyperlipidemia associated with type 2 diabetes mellitus Patient has history of Hyperlipidemia and is currently taking Rosuvastatin daily. Hypertension Patient has hypertension that is controlled with medication. She checks bl ood pressure at home. She is under the care of [facility]. Hypomagnesemia Patient has recent history of low magnesium level. She takes a supplement at home daily Hypomagnesemia Hypothyroidism Patient has history and current diagnosis of hypothyroidism. She takes Levothyroxine daily, and is compliant with medications and testing. Oral candidiasis Osteoarthritis Otitis media Otitis media Right knee pain Shortness of breath Sinusitis Thoracic back pain Type 2 diabetes mellitus Vitamin D deficiency Surgical History Acquired absence of both cervix and uterus H/O lateral meniscus repair of left knee H/O lateral meniscus repair of right knee S/P abdominal hysterectomy S/P cholecystectomy 2016 Dr. Franco S/P shoulder surgery Repair of right shoulder at [facility] with Dr. Dickson in 2013, then additional repair on right shoulder in 2017 in [facility] in [place]. Family History Other Afib Cancer Myocardial infarction Social History Smoking and tobacco status: former smoker Alcohol intake: never Substance/Drug Use: never Physical Exam Const: COMMON NORMALS: patient oriented x3, no limitations and alert GENERAL APPEARANCE: cooperative and in distress (secondary to pain) NUTRITIONAL APPEARANCE: obese ORIENTATION/CONSCIOUSNESS: Yes awake, Yes oriented to person, Yes oriented to place and Yes oriented to time HENMT: COMMON NORMALS: normocephalic, atraumatic and TM's normal bilaterally HEAD & SCALP: normal to inspection, normocephalic and atraumatic FACE & SINUS: normal facial exam TYMPANIC MEMBRANE: TM's normal bilaterally MOUTH: other (no intraoral injuries noted) Eye: COMMON NORMALS: Equal, round and reactive pupils present and EOMs intact bilaterally GENERAL EYE: appearance normal, both eyes and all related structures and normal light reflex PUPIL: Yes Equal, round and reactive pupils present DIRECT OPHTHALMOSCOPY: Yes normal light reflex Neck/C-Spine: COMMON NORMALS: full ROM GENERAL: Yes normal visual inspection CERVICAL SPINE: Yes cervical ROM normal, No pain with cervical ROM, No Cervical spine tenderness, No step off deformity and No Paracervical muscle tenderness Chest: COMMONS NORMALS: normal inspection of the chest and normal palpation of entire chest wall Resp: COMMON NORMALS: normal respiratory effort and clear to auscultation bilaterally AUSCULTATION: clear to auscultation bilaterally Cardio: COMMON NORMALS: regular rate and regular rhythm RATE: regular rate RHYTHM: regular rhythm GI: COMMON NORMALS: Normal to inspection, nondistended, normoactive bowel sounds present, Soft to palpation, non-tender, No hepatosplenomegaly present and no masses INSPECTION: Yes normal to inspection and No abdominal wall ecchymosis AUSCULTATION: Yes normoactive bowel sounds PALPATION: Yes Soft to palpation and Yes No hepatosplenomegaly present Back/Pelvis: COMMON NORMALS: thoracic and lumbar spine normal to inspection, no thoracic nor lumbar tenderness and thoraco-lumbar ROM normal Extremity: GENERAL: Yes normal exam except as noted RIGHT UPPER EXTREMITY: Yes shoulder joint (TTP and swelling noted to midshaft humerus consistent with fx) Right shoulder: Yes Right shoulder joint ROM exam (limited secondary to pain) and Yes Right shoulder joint neurovascular exam (normal) LEFT UPPER EXTREMITY: Yes wrist (mild tenderness; full ROM; intact sutures from carpal tunnel surgery) Left wrist: Yes ROM (normal) and Yes neurovascular exam (normal) Neuro: KENDRICK COMA SCALE: document GCS findings [place] coma scale eye opening: Spontaneous [place] coma scale verbal response: Orientated [place] coma scale motor response: Obey commands Kendrick coma scale total score: 15 COMMON NORMALS: patient oriented x3, moves all extremities, no focal motor deficits and no sensory deficits noted SENSORIUM/ORIENTATION: Yes alert, Yes oriented to person, Yes oriented to place and Yes oriented to time SPEECH: speech normal GAIT: Yes Normal gait present Skin: COMMON NORMALS: no rashes or lesions noted GENERAL SKIN EXAM: no rashes or lesions noted TRAUMA: no lacerations or abrasions Course Consultations: Consultation #1: Dr. Reina-recommends splint with clamshell and sling and refer to [place] Vital Signs: Vital signs: Vital Signs Temperature 97.8 F 04/18/23 11:59 Pulse Rate 67 04/18/23 14:01 Respiratory Rate 17 04/18/23 13:23 Blood Pressure 158/112 04/18/23 14:01 Pulse Oximetry 90 04/18/23 14:01 Oxygen Delivery Me thod Room Air 04/18/23 11:59 MDM - Fall Medical Decision Making Patient is a 67-year-old female here following a trip and fall onto her right shoulder. She was noted to have a periprosthetic midshaft displaced humeral fracture. No concern for radial nerve injury at this time. Spoke to Dr. Reina who recommended clamshell splinting, sling, and referred to orthopedics in [place]. Management referral has been placed for this. Return to ED precautions given. Lab Data Radiology Impressions Humerus X-Ray 04/18/23 00:00 IMPRESSION: Fractured humerus. Shoulder X-Ray 04/18/23 12:09 IMPRESSION: Humeral diaphyseal fracture. Wrist X-Ray 04/18/23 12:33 IMPRESSION: Nonacute findings. Discharge Plan Discharge Patient Disposition: Home Clinical Impression: Periprosthetic fracture around internal prosthetic right shoulder joint Qualifiers: Encounter type: initial encounter Qualified Code(s): M97.31XA - Periprosthetic fracture around internal prosthetic right shoulder joint, initial encounter Humeral fracture Qualifiers: Encounter type: initial encounter Humerus Location: shaft Fracture type: closed Fracture morphology: oblique Fracture alignment: displaced Laterality: right Qualified Code(s): S42.331A - Displaced oblique fracture of shaft of humerus, right arm, initial encounter for closed fracture Condition: Stable Prescriptions: New hydrocodone-acetaminophen 7.5-325 mg tablet 1 tab PO Q4H PRN (Reason: pain) Qty: 20 0RF No Action ceftriaxone 1 gram recon soln 1 g IM ONCE Qty: 1 0RF dexamethasone sodium phosphate 10 mg/mL solution 10 mg IM ONCE Qty: 1 0RF diphenoxylate-atropine [Lomotil] 2.5-0.025 mg tablet See Rx Instructions PO DAILY PRN (Reason: diarrhea) Qty: 20 0RF Rx Instructions: 2 tablets PO q6hr; not to exceed 8 diphenoxylate daily until initial control of diarrhea achieved (usually 48 hr) fluticasone propionate 50 mcg/actuation spray,suspension See Rx Instructions .ROUTE .COMPLEX PRN Dose Instruction: INSTILL 2 SPRAYS IN EACH NOSTRIL DAILY Rx Instructions: INSTILL 2 SPRAYS IN EACH NOSTRIL DAILY PRN; rosuvastatin 20 mg tablet 20 mg PO DAILY pantoprazole 40 mg tablet,delayed release (DR/EC) 40 mg PO BID levothyroxine 25 mcg tablet 25 mcg PO DAILY isosorbide mononitrate 30 mg tablet extended release 24 hr 30 mg PO DAILY Advair HFA 115-21 mcg/actuation HFA aerosol inhaler 2 inh inhalation BID aripiprazole 5 mg tablet 5 mg PO DAILY amlodipine 10 mg tablet 10 mg PO DAILY bupropion HCl 300 mg tablet extended release 24 hr 300 mg PO QAM Qty: 30 3RF furosemide 20 mg tablet 20 mg PO DAILY Qty: 10 0RF meclizine 25 mg tablet 25 mg PO BID PRN (Reason: dizziness) Qty: 30 0RF naloxone 4 mg/actuation spray,non-aerosol 4 mg intranasal Q3M PRN Rx Instructions: spray 1 dose into ONE nostril; alternate nostrils w each dose until help arrives cyclobenzaprine 10 mg tablet 10 mg PO .at beditme PRN (Reason: muscle spasm) Qty: 30 0RF ondansetron 4 mg tablet,disintegrating 4 mg PO Q8H PRN (Reason: nausea and vomiting) Qty: 20 0RF benazepril 20 mg tablet 20 mg PO DAILY Qty: 30 1RF pregabalin [Lyrica] 50 mg capsule 50 mg PO BID Qty: 60 1RF magnesium oxide 400 mg magnesium tablet 400 mg PO BID 90 Days Qty: 180 1RF (DME) one touch ultra glucometer See Rx Instructions .Route .MEDSUPPLY Qty: 1 0RF Rx Instructions: Please provide glucometer, test strips and lancets diclofenac sodium 1 % gel See Rx Instructions .ROUTE .COMPLEX Qty: 100 0RF Dose Instruction: APPLY 2 GRAMS TOPICALLY FOUR TIMES DAILY TO SINGLE ELBOW, WRIST OR HAND; FOR HAND INCLUDES PALM/FINGERS/BACK OF HAND Rx Instructions: APPLY 2 GRAMS TOPICALLY FOUR TIMES DAILY TO SINGLE ELBOW, WRIST OR HAND; FOR HAND INCLUDES PALM/FINGERS/BACK OF HAND spironolactone 25 mg tablet 12.5 mg PO DAILY Qty: 45 1RF insulin glargine [Lantus Solostar U-100 Insulin] 100 unit/mL (3 mL) insulin pen 28 unit SUBCUT BID 90 Days Qty: 50.4 0RF albuterol sulfate 90 mcg/actuation HFA aerosol inhaler See Rx Instructions .ROUTE .COMPLEX Qty: 17 1RF Dose Instruction: INHALE 2 PUFFS BY MOUTH EVERY 8 HOURS NEEDED FOR SHORTNESS OF BREATH OR WHEEZING Rx Instructions: INHALE 2 PUFFS BY MOUTH EVERY 8 HOURS NEEDED FOR SHORTNESS OF BREATH OR WHEEZING lidocaine 5 % adhesive patch,medicated 1 patch TOPICAL QDAY Qty: 30 0RF (DME) lancets [OneTouch Delica Plus Lancet] 33 gauge misc See Rx Instructions .ROUTE .COMPLEX Qty: 100 0RF Dose Instruction: USE TO TEST TWICE DAILY. Rx Instructions: USE TO TEST TWICE DAILY. (DME) OneTouch Ultra Test Strip See Rx Instructions .ROUTE .COMPLEX Qty: 100 0RF Dose Instruction: USE TO TEST TWICE DAILY. Rx Instructions: USE TO TEST TWICE DAILY. (DME) pen needle, diabetic [BD Ultra-Fine Micro Pen Needle] 32 gauge x 1/4 needle See Rx Instructions .ROUTE .COMPLEX Qty: 200 0RF Dose Instruction: USE WITH INSULIN DAILY Rx Instructions: USE WITH INSULIN twice daily Discharge Orders: Discharge ED (Routine); Ordered 04/18/23 Ordered By: Lynnette Espinoza Referrals: Marcie Hermosillo FNP [Primary Care Provider] - Patient Instructions: Arm Fracture in Adults (DC) Activity Restrictions/Additional Instructions: You need to stay in the splint at all times until your follow-up orthopedic appointment. Case management should reach out to you shortly this week to set you up with your follow-up appointment in [place]. You need to return to the emergency department for worsening or uncontrollable pain despite your prescription pain medication, numbness/tingling/loss of sensation in the arm, any color or temperature changes to the arm especially paleness/coolness, or any other concerns you may have. I hope you begin to feel better soon. Coding Level of Care Code ED Concrete Finishing Machine Operator for Chg Fwd Documented by User: Edgard Robles DO 04/20/23 06:37 HPI - Fall General: Chief Complaint: Fall Stated Complaint: Fall, Right Shoulder injury Time Seen by Provider: 04/18/23 12:08 PFS ED PFSH: Medical History Abdominal pain Acute bacterial otitis media Acute bacterial sinusitis Acute bacterial sinusitis po Anemia Anxiety and depression Arthritis of hand Bacterial sinusitis Breast cancer screening by mammogram Chronic kidney disease COPD (chronic obstructive pulmonary disease) Diabetic foot Patient is a diabetic with previous history of foot callous formations and under the care of a Ginning Operator. She would like to be referred to [facility] Ginning Operator, Dr. Melchor. Diarrhea DM II (diabetes mellitus, type II), controlled Patient has DM II for and extended time. She was controlled previously with Victoza but stopped due to abdominal pain. The abdominal pain resolved, but patient has continued elevated glucose. Patient was trialed with Trulicity, but glucose levels remained elevated. Trulicity was discontinued, and patient was started on Rybelsus and Jardiance and continued on Metformin. Patient referred to [facility] Endocrinology for evaluation and treatment. Elevated parathyroid hormone Fibromyalgia GERD (gastroesophageal reflux disease) Hyperlipidemia associated with type 2 diabetes mellitus Patient has history of Hyperlipidemia and is currently taking Rosuvastatin daily. Hypertension Patient has hypertension that is controlled with medication. She checks blood pressure at home. She is under the care of [facility]. Hypomagnesemia Patient has recent history of low magnesium level. She takes a supplement at home daily Hypomagnesemia Hypothyroidism Patient has history and current diagnosis of hypothyroidism. She takes Levothyroxine daily, and is compliant with medications and testing. Oral candidiasis Osteoarthritis Otitis media Otitis media Right knee pain Shortness of breath Sinusitis Thoracic back pain Type 2 diabetes mellitus Vitamin D deficiency Surgical History Acquired absence of both cervix and uterus H/O lateral meniscus repair of left knee H/O lateral meniscus repair of right knee S/P abdominal hysterectomy S/P cholecystectomy 2016 Dr. Franco S/P shoulder surgery Repair of right shoulder at [facility] with Dr. Dickson in 2013, then additional repair on right shoulder in 2017 in [facility] in [place]. Family History Other Afib Cancer Myocardial infarction Social History Smoking and tobacco status: former smoker Alcohol intake: never Substance/Drug Use: never Physical Exam Neuro: KENDRICK COMA SCALE: document GCS findings [place] coma scale total score: 15 Course Vital Signs: Vital signs: Vital Signs Temperature 97.8 F 04/18/23 11:59 Pulse Rate 67 04/18/23 14:01 Respiratory Rate 17 04/18/23 13:23 Blood Pressure 158/112 04/18/23 14:01 Pulse Oximetry 90 04/18/23 14:01 Oxygen Delivery Me thod Room Air 04/18/23 11:59 MDM - Fall Medical Decision Making Patient is a 67-year-old female here following a trip and fall onto her right shoulder. She was noted to have a periprosthetic midshaft displaced humeral fracture. No concern for radial nerve injury at this time. Spoke to Dr. Reina who recommended clamshell splinting, sling, and referred to orthopedics in [place]. Management referral has been placed for this. Return to ED precautions given. Chart reviewed and patient discussed with midlevel. Agree with assessment and plan. Medical Records I reviewed the patient's medical records. Lab Data Radiology Impressions Humerus X-Ray 04/18/23 00:00 IMPRESSION: Fractured humerus. Shoulder X-Ray 04/18/23 12:09 IMPRESSION: Humeral diaphyseal fracture. Wrist X-Ray 04/18/23 12:33 IMPRESSION: Nonacute findings. Discharge Plan Discharge Patient Disposition: Home Clinical Impression: Periprosthetic fracture around internal prosthetic right shoulder joint Qualifiers: Encounter type: initial encounter Qualified Code(s): M97.31XA - Periprosthetic fracture around internal prosthetic right shoulder joint, initial encounter Humeral fracture Qualifiers: Encounter type: initial encounter Humerus Location: shaft Fracture type: closed Fracture morphology: oblique Fracture alignment: displaced Laterality: right Qualified Code(s): S42.331A - Displaced oblique fracture of shaft of humerus, right arm, initial encounter for closed fracture Condition: Stable Prescriptions: New hydrocodone-acetaminophen 7.5-325 mg tablet 1 tab PO Q4H PRN (Reason: pain) Qty: 20 0RF No Action ceftriaxone 1 gram recon soln 1 g IM ONCE Qty: 1 0RF dexamethasone sodium phosphate 10 mg/mL solution 10 mg IM ONCE Qty: 1 0RF diphenoxylate-atropine [Lomotil] 2.5-0.025 mg tablet See Rx Instructions PO DAILY PRN (Reason: diarrhea) Qty: 20 0RF Rx Instructions: 2 tablets PO q6hr; not to exceed 8 diphenoxylate daily until initial control of diarrhea achieved (usually 48 hr) fluticasone propionate 50 mcg/actuation spray,suspension See Rx Instructions .ROUTE .COMPLEX PRN Dose Instruction: INSTILL 2 SPRAYS IN EACH NOSTRIL DAILY Rx Instructions: INSTILL 2 SPRAYS IN EACH NOSTRIL DAILY PRN; rosuvastatin 20 mg tablet 20 mg PO DAILY pantoprazole 40 mg tablet,delayed release (DR/EC) 40 mg PO BID levothyroxine 25 mcg tablet 25 mcg PO DAILY isosorbide mononitrate 30 mg tablet extended release 24 hr 30 mg PO DAILY Advair HFA 115-21 mcg/actuation HFA aerosol inhaler 2 inh inhalation BID aripiprazole 5 mg tablet 5 mg PO DAILY amlodipine 10 mg tablet 10 mg PO DAILY bupropion HCl 300 mg tablet extended release 24 hr 300 mg PO QAM Qty: 30 3RF furosemide 20 mg tablet 20 mg PO DAILY Qty: 10 0RF meclizine 25 mg tablet 25 mg PO BID PRN (Reason: dizziness) Qty: 30 0RF naloxone 4 mg/actuation spray,non-aerosol 4 mg intranasal Q3M PRN Rx Instructions: spray 1 dose into ONE nostril; alternate nostrils w each dose until help arrives cyclobenzaprine 10 mg tablet 10 mg PO .at beditme PRN (Reason: muscle spasm) Qty: 30 0RF ondansetron 4 mg tablet,disintegrating 4 mg PO Q8H PRN (Reason: nausea and vomiting) Qty: 20 0RF benazepril 20 mg tablet 20 mg PO DAILY Qty: 30 1RF pregabalin [Lyrica] 50 mg capsule 50 mg PO BID Qty: 60 1RF magnesium oxide 400 mg magnesium tablet 400 mg PO BID 90 Days Qty: 180 1RF (DME) one touch ultra glucometer See Rx Instructions .Route .MEDSUPPLY Qty: 1 0RF Rx Instructions: Please provide glucometer, test strips and lancets diclofenac sodium 1 % gel See Rx Instructions .ROUTE .COMPLEX Qty: 100 0RF Dose Instruction: APPLY 2 GRAMS TOPICALLY FOUR TIMES DAILY TO SINGLE ELBOW, WRIST OR HAND; FOR HAND INCLUDES PALM/FINGERS/BACK OF HAND Rx Instructions: APPLY 2 GRAMS TOPICALLY FOUR TIMES DAILY TO SINGLE ELBOW, WRIST OR HAND; FOR HAND INCLUDES PALM/FINGERS/BACK OF HAND spironolactone 25 mg tablet 12.5 mg PO DAILY Qty: 45 1RF insulin glargine [Lantus Solostar U-100 Insulin] 100 unit/mL (3 mL) insulin pen 28 unit SUBCUT BID 90 Days Qty: 50.4 0RF albuterol sulfate 90 mcg/actuation HFA aerosol inhaler See Rx Instructions .ROUTE .COMPLEX Qty: 17 1RF Dose Instruction: INHALE 2 PUFFS BY MOUTH EVERY 8 HOURS NEEDED FOR SHORTNESS OF BREATH OR WHEEZING Rx Instructions: INHALE 2 PUFFS BY MOUTH EVERY 8 HOURS NEEDED FOR SHORTNESS OF BREATH OR WHEEZING lidocaine 5 % adhesive patch,medicated 1 patch TOPICAL QDAY Qty: 30 0RF (DME) lancets [OneTouch Delica Plus Lancet] 33 gauge misc See Rx Instructions .ROUTE .COMPLEX Qty: 100 0RF Dose Instruction: USE TO TEST TWICE DAILY. Rx Instructions: USE TO TEST TWICE DAILY. (DME) OneTouch Ultra Test Strip See Rx Instructions .ROUTE .COMPLEX Qty: 100 0RF Dose Instruction: USE TO TEST TWICE DAILY. Rx Instructions: USE TO TEST TWICE DAILY. (DME) pen needle, diabetic [BD Ultra-Fine Micro Pen Needle] 32 gauge x 1/4 needle See Rx Instructions .ROUTE .COMPLEX Qty: 200 0RF Dose Instruction: USE WITH INSULIN DAILY Rx Instructions: USE WITH INSULIN twice daily Discharge Orders: Discharge ED (Routine); Ordered 04/18/23 Ordered By: Lynnette Espinoza Referrals: Marcie Hermosillo FNP [Primary Care Provider] - Patient Instructions: Arm Fracture in Adults (DC) Activity Restrictions/Additional Instructions: You need to stay in the splint at all times until your follow-up orthopedic appointment. Case management should reach out to you shortly this week to set you up with your follow-up appointment in [place]. You need to return to the emergency department for worsening or uncontrollable pain despite your prescription pain medication, numbness/tingling/loss of sensation in the arm, any color or temperature changes to the arm especially paleness/coolness, or any other concerns you may have. I hope you begin to feel better soon. Coding Level of Care Code ED Concrete Finishing Machine Operator for Lesa Herrera
[2023-04-18 13:03] VITALS: BP 185/136; PULSE 70; RESP 20; O2SAT 100
[2023-04-18 13:23] VITALS: RESP 17; O2SAT 98
[2023-04-18] MEDS: ondansetron 2 mg/ML SDV 2 mL 4 MG IM (13:23)
[2023-04-18] MEDS: HYDROmorphone 1 mg/mL INJ 1 mL IM (13:23)
--- NOTE | 2023-04-18 13:32 | PC.NURSE ---
PTS SON REMARKED THAT HE WAS NOT OKAY WITH HIS MOTHER RECEIVING DOSE OF HYDROMORPHONE. NURSE VERFIED DOSE AMOUNT WITH PT AND SHE STATED SHE WAS COMFORTABLE WITH RECEIVING THE DOSE. ADMINISTERED THE DOSE PRESCRIBED.
[2023-04-18 14:01] VITALS: BP 158/112; PULSE 67; O2SAT 90
--- NOTE | 2023-04-18 14:05 | PC.NURSE ---
PT PLACED PT RIGHT SHOULDER IN CLAM SHELL SPLINT
--- NOTE | 2023-04-19 08:18 | DCPLANNER ---
Addendum entered by Lakshmi Matamoros 04/26/23 15:09: insulation manager called [facility] to confirm that patients information had been received. insulation manager was told that it was received, will be reviewed, and clinic will call patient with appointment information. Original Note: insulation manager had message to refer patient to ortho in [place] to [facility]. insulation manager faxed patients information to the clinic, it will be reviewed and clinic will call patient with appointment information.
== END 2023-04-18 13:52 | disposition home or self-care (01) ==
PROVIDERS: Emergency Provider Physician Assistant; PCP Nurse Practitioner
DX: M97.31XA Periprosthetic fracture around internal prosthetic right shoulder joint, initial encounter (principal); S42.331A Displaced oblique fracture of shaft of humerus, right arm, initial encounter for closed fracture; Z79.4 Long term (current) use of insulin; Z87.891 Personal history of nicotine dependence; J44.9 Chronic obstructive pulmonary disease, unspecified; E11.22 Type 2 diabetes mellitus with diabetic chronic kidney disease; I12.9 Hypertensive chronic kidney disease with stage 1 through stage 4 chronic kidney disease, or unspecified chronic kidney disease; N18.9 Chronic kidney disease, unspecified; E78.5 Hyperlipidemia, unspecified; W01.0XXA Fall on same level from slipping, tripping and stumbling without subsequent striking against object, initial encounter; R07.89 Other chest pain; E66.09 Other obesity due to excess calories; E11.40 Type 2 diabetes mellitus with diabetic neuropathy, unspecified; E11.65 Type 2 diabetes mellitus with hyperglycemia; E11.69 Type 2 diabetes mellitus with other specified complication; E03.9 Hypothyroidism, unspecified; Z68.41 Body mass index [BMI] 40.0-44.9, adult
CPT/HCPCS: 73030; 73060; 73110; 96372; 97760; 99214; 99284; J1170; J2405; L3980

== ENCOUNTER → 2023-07-19 08:49 | Outpatient (BNVA) | payer MEDICARE, MEDICAID, SELFPAY | PROVIDERS: PCP Nurse Practitioner; Visit Provider Nurse Practitioner Family | DX: R60.0 Localized edema (principal); M79.7 Fibromyalgia; R79.89 Other specified abnormal findings of blood chemistry; Z87.898 Personal history of other specified conditions; E03.9 Hypothyroidism, unspecified; E04.1 Nontoxic single thyroid nodule; E11.40 Type 2 diabetes mellitus with diabetic neuropathy, unspecified; E11.65 Type 2 diabetes mellitus with hyperglycemia; E21.0 Primary hyperparathyroidism; E83.52 Hypercalcemia; R10.9 Unspecified abdominal pain; I10 Essential (primary) hypertension | CPT/HCPCS: 80053; 80061; 81003; 82043; 82306; 83036; 83880; 84439; 84443; 85025 ==

== ENCOUNTER → 2023-07-21 09:27 | Outpatient (BNVA) | payer MEDICARE, MEDICAID, SELFPAY | PROVIDERS: PCP Nurse Practitioner; Visit Provider Internal Medicine | DX: E11.40 Type 2 diabetes mellitus with diabetic neuropathy, unspecified (principal); E11.65 Type 2 diabetes mellitus with hyperglycemia; E11.628 Type 2 diabetes mellitus with other skin complications; E03.9 Hypothyroidism, unspecified; E21.0 Primary hyperparathyroidism; K31.84 Gastroparesis; E78.5 Hyperlipidemia, unspecified; Z79.4 Long term (current) use of insulin; Z79.890 Hormone replacement therapy | CPT/HCPCS: 99214 ==

== ENCOUNTER → 2023-09-20 10:02 | Outpatient (BNVA) | payer MEDICARE, MEDICAID, SELFPAY | PROVIDERS: PCP Nurse Practitioner Family; Visit Provider Internal Medicine | DX: E11.628 Type 2 diabetes mellitus with other skin complications (principal); E11.69 Type 2 diabetes mellitus with other specified complication; E11.40 Type 2 diabetes mellitus with diabetic neuropathy, unspecified; E21.0 Primary hyperparathyroidism; E78.5 Hyperlipidemia, unspecified; E11.65 Type 2 diabetes mellitus with hyperglycemia; E03.9 Hypothyroidism, unspecified; Z79.4 Long term (current) use of insulin; Z79.890 Hormone replacement therapy | CPT/HCPCS: 99214 ==

== ENCOUNTER → 2023-10-10 08:44 | Outpatient (BNVA) | payer MEDICARE, MEDICAID, SELFPAY | PROVIDERS: PCP Nurse Practitioner Family; Visit Provider Internal Medicine | DX: E21.0 Primary hyperparathyroidism (principal); E11.69 Type 2 diabetes mellitus with other specified complication; E78.5 Hyperlipidemia, unspecified; E11.628 Type 2 diabetes mellitus with other skin complications; E11.40 Type 2 diabetes mellitus with diabetic neuropathy, unspecified; E11.65 Type 2 diabetes mellitus with hyperglycemia; E03.9 Hypothyroidism, unspecified; I10 Essential (primary) hypertension; E34.9 Endocrine disorder, unspecified | CPT/HCPCS: 80053; 80061; 82043; 82310; 83036; 83970; 84439; 84443; 84480; 84681 ==

== ENCOUNTER 2023-10-16 07:59 | Outpatient (CLI) | payer OTHER, MEDICAID, SELFPAY ==
--- NOTE | 2023-10-16 08:03 | MM_ITS ---
WS: [id number] BILATERAL SCREENING DIGITAL TOMOSYNTHESIS MAMMOGRAM WITH CAD HISTORY: Z12.39 - Encounter for other screening for malignant neop... COMPARISON: 05/30/2017, 10/25/2018 Bilateral CC and MLO views with tomosynthesis and synthetic mammography submitted. Computer aided det ection analyzed. Breast composition: There are scattered areas of fibroglandular density. No suspicious masses, microc alcifications or architectural distortion. Benign scattered calcifications. IMPRESSION: MM/[place] [id number] BI-RADS: 2-Benign FOLLOW UP: 1 Year Follow-up
== END 2023-10-16 08:00 | disposition home or self-care (01) ==
LOC: RAD 08:00
PROVIDERS: Visit Provider Nurse Practitioner Family
DX: Z12.31 Encounter for screening mammogram for malignant neoplasm of breast (principal)
CPT/HCPCS: 77063; 77067

== ENCOUNTER 2023-10-24 06:00 | Outpatient (RCR) | payer MEDICARE, MEDICAID, SELFPAY | END 2023-11-16 23:59 | disposition home or self-care (01) | LOC: WPT 06:00 | PROVIDERS: Visit Provider Nurse Practitioner Family | DX: S32.000D Wedge compression fracture of unspecified lumbar vertebra, subsequent encounter for fracture with routine healing (principal); X58.XXXD Exposure to other specified factors, subsequent encounter | CPT/HCPCS: 97110; 97112; 97163; 97530 ==

== ENCOUNTER → 2023-10-25 08:12 | Outpatient (BNVA) | payer OTHER, MEDICAID, SELFPAY | PROVIDERS: Visit Provider Internal Medicine | DX: E11.40 Type 2 diabetes mellitus with diabetic neuropathy, unspecified (principal); E11.65 Type 2 diabetes mellitus with hyperglycemia; E03.9 Hypothyroidism, unspecified; E21.0 Primary hyperparathyroidism; E55.9 Vitamin D deficiency, unspecified; E11.628 Type 2 diabetes mellitus with other skin complications; M79.7 Fibromyalgia; Z79.890 Hormone replacement therapy; Z79.4 Long term (current) use of insulin | CPT/HCPCS: 99214 ==

== ENCOUNTER 2023-11-17 06:00 | Outpatient (RCR) | payer MEDICARE, MEDICAID, SELFPAY | END 2023-12-17 23:59 | disposition home or self-care (01) | LOC: WPT 06:00 | PROVIDERS: PCP Nurse Practitioner Family; Visit Provider Nurse Practitioner Family | DX: S32.000D Wedge compression fracture of unspecified lumbar vertebra, subsequent encounter for fracture with routine healing (principal); X58.XXXD Exposure to other specified factors, subsequent encounter | CPT/HCPCS: 97110; 97112; 97530 ==

== ENCOUNTER 2023-12-18 06:00 | Outpatient (RCR) | payer MEDICARE, MEDICAID, SELFPAY | END 2024-01-16 23:59 | disposition home or self-care (01) | LOC: WPT 06:00 | PROVIDERS: PCP Nurse Practitioner Family; Visit Provider Nurse Practitioner Family | DX: S32.000D Wedge compression fracture of unspecified lumbar vertebra, subsequent encounter for fracture with routine healing (principal); X58.XXXD Exposure to other specified factors, subsequent encounter | CPT/HCPCS: 97110; 97112; 97530 ==

== ENCOUNTER → 2024-01-18 08:26 | Outpatient (BNVA) | payer MEDICARE, MEDICAID, SELFPAY | PROVIDERS: PCP Nurse Practitioner Family; Visit Provider Nurse Practitioner Family | DX: M79.7 Fibromyalgia (principal); E11.40 Type 2 diabetes mellitus with diabetic neuropathy, unspecified; E11.65 Type 2 diabetes mellitus with hyperglycemia; E03.9 Hypothyroidism, unspecified; E83.52 Hypercalcemia; E21.0 Primary hyperparathyroidism; E55.9 Vitamin D deficiency, unspecified; E11.628 Type 2 diabetes mellitus with other skin complications; E34.9 Endocrine disorder, unspecified | CPT/HCPCS: 80053; 80061; 82043; 82306; 82310; 83036; 83970; 84439; 84443 ==

== ENCOUNTER → 2024-01-22 09:54 | Outpatient (BNVA) | payer MEDICARE, MEDICAID, SELFPAY | PROVIDERS: PCP Nurse Practitioner Family; Visit Provider Internal Medicine | DX: E83.52 Hypercalcemia (principal); D64.9 Anemia, unspecified | CPT/HCPCS: 80053 ==

== ENCOUNTER → 2024-02-08 08:40 | Outpatient (BNVA) | payer MEDICARE, MEDICAID, SELFPAY | PROVIDERS: PCP Nurse Practitioner Family; Visit Provider Nurse Practitioner Family | DX: R06.2 Wheezing; M17.12 Unilateral primary osteoarthritis, left knee; I70.0 Atherosclerosis of aorta | CPT/HCPCS: 71046; 73562 ==

== ENCOUNTER → 2024-03-25 08:02 | Outpatient (BNVA) | payer MEDICARE, MEDICAID, SELFPAY | PROVIDERS: PCP Nurse Practitioner Family; Visit Provider Nurse Practitioner | DX: M17.12 Unilateral primary osteoarthritis, left knee; M48.062 Spinal stenosis, lumbar region with neurogenic claudication | CPT/HCPCS: 73560; 73565; 99214 ==

== ENCOUNTER → 2024-04-30 07:52 | Outpatient (BNVA) | payer MEDICARE, MEDICAID, SELFPAY | PROVIDERS: PCP Nurse Practitioner Family; Visit Provider Internal Medicine | DX: E11.40 Type 2 diabetes mellitus with diabetic neuropathy, unspecified (principal); E11.65 Type 2 diabetes mellitus with hyperglycemia; E03.9 Hypothyroidism, unspecified; E21.0 Primary hyperparathyroidism; E11.628 Type 2 diabetes mellitus with other skin complications; E55.9 Vitamin D deficiency, unspecified; S32.000D Wedge compression fracture of unspecified lumbar vertebra, subsequent encounter for fracture with routine healing; E78.2 Mixed hyperlipidemia; X58.XXXD Exposure to other specified factors, subsequent encounter; K31.84 Gastroparesis; Z79.4 Long term (current) use of insulin; Z79.890 Hormone replacement therapy | CPT/HCPCS: 36415; 80053; 80061; 82044; 82310; 83036; 83970; 84439; 84443; 99214 ==

== ENCOUNTER 2024-07-18 06:32 | Outpatient (RCR) | payer MEDICARE, SELFPAY | END 2024-07-18 23:59 | disposition home or self-care (01) | LOC: WPT 06:32 | PROVIDERS: PCP Nurse Practitioner Family; Visit Provider Nurse Practitioner Family | DX: M54.16 Radiculopathy, lumbar region (principal) | CPT/HCPCS: 97161 ==

== ENCOUNTER 2024-07-19 06:00 | Outpatient (RCR) | payer MEDICARE, SELFPAY | END 2024-08-17 23:59 | disposition home or self-care (01) | LOC: WPT 06:00 | PROVIDERS: PCP Nurse Practitioner Family; Visit Provider Nurse Practitioner Family | DX: M54.16 Radiculopathy, lumbar region (principal) | CPT/HCPCS: 97110; 97112; 97530 ==

== ENCOUNTER 2024-08-13 09:50 | Outpatient (CLI) | payer MEDICARE, SELFPAY ==
--- NOTE | 2024-08-13 12:45 | USR_ITS ---
PROCEDURE INFORMATION: Exam: US Soft Tissue Head and Neck, Thyroid Exam date and time: 08/13/2024 9:57 AM Age: 69 years old Clinical indication: Condition or disease; Thyroid disorder; Other: Hypothyroidism, unspecified; Additional info: E03.9 - hypothyroidism, unspecified TECHNIQUE: Imaging protocol: Real-time ultrasound scan of the neck with image documentation. Exam focused on the thyroid. COMPARISON: US thyroid [id number] 10/25/2018 9:10 AM FINDINGS: Right thyroid lobe: No nodules. Left thyroid lobe: No nodules. Isthmus: No nodules. US/US thyroid [id number] IMPRESSION: Unremarkable thyroid.
== END 2024-08-13 09:51 | disposition home or self-care (01) ==
LOC: RAD 09:51
PROVIDERS: PCP Nurse Practitioner Family; Visit Provider Nurse Practitioner Family
DX: E03.9 Hypothyroidism, unspecified (principal); R13.10 Dysphagia, unspecified; E11.69 Type 2 diabetes mellitus with other specified complication; L60.3 Nail dystrophy; L84 Corns and callosities; I73.9 Peripheral vascular disease, unspecified
CPT/HCPCS: 11056; 11721; 76536; 99203

== ENCOUNTER 2024-08-18 06:00 | Outpatient (RCR) | payer MEDICARE, MEDICAID, SELFPAY | END 2024-09-17 23:59 | disposition home or self-care (01) | LOC: WPT 06:00 | PROVIDERS: PCP Nurse Practitioner Family; Visit Provider Nurse Practitioner Family | DX: M54.16 Radiculopathy, lumbar region (principal) | CPT/HCPCS: 97110; 97112; 97530 ==

== ENCOUNTER → 2024-08-21 09:53 | Outpatient (BNVA) | payer MEDICARE, SELFPAY | PROVIDERS: PCP Nurse Practitioner Family; Referring Provider Nurse Practitioner Family; Visit Provider Surgery | DX: R13.10 Dysphagia, unspecified (principal) | CPT/HCPCS: 99204 ==

== ENCOUNTER → 2024-09-26 08:14 | Outpatient (BNVA) | payer MEDICARE, SELFPAY | PROVIDERS: PCP Nurse Practitioner Family; Visit Provider Internal Medicine | DX: E11.40 Type 2 diabetes mellitus with diabetic neuropathy, unspecified (principal); E11.65 Type 2 diabetes mellitus with hyperglycemia; E03.9 Hypothyroidism, unspecified; E21.0 Primary hyperparathyroidism; E11.628 Type 2 diabetes mellitus with other skin complications; E34.9 Endocrine disorder, unspecified | CPT/HCPCS: 80053; 80061; 82043; 82310; 83036; 83970; 84439; 84443 ==

== ENCOUNTER 2024-10-01 06:31 | Day surgery (SDC) | payer MEDICARE, MEDICAID, SELFPAY ==
[2024-10-01] VITALS (11 sets, daily range): BP systolic 119–161; BP diastolic 60–91; PULSE 74–83; RESP 16–20; TEMP 36.1–36.4; O2SAT 95–100; BMI 42.9
--- NOTE | 2024-10-01 06:43 | P.HP_ITS ---
Same Day Surgery H&P Indication for Procedure/HPI DATE OF PROCEDURE: October 01, 2024 CHIEF COMPLAINT/INDICATIONFOR SURGICAL PROCEDURE: dysphagia PREOP DIAGNOSIS: dysphagia PLANNED PROCEDURE: Operation Date: 10/01/24 07:40 Proposed Procedures p EGD Dilation W/ Balloon 02649, R13.10(Not Applicable) - Benjy Doss MD Medications/Allergies* Home Medications Medication Instructions Recorded Confirmed Type naloxone 4 mg/actuation nasal spray 4 mg intranasal Q3M PRN overdose 04/11/22 09/26/24 History albuterol sulfate 90 mcg/actuation 2 puff inhalation Q8H PRN 08/23/24 09/26/24 History aerosol inhaler Shortness Of Breath Or Wheezing amlodipine 10 mg tablet 10 mg PO DAILY 08/23/24 09/26/24 History aripiprazole 5 mg tablet 5 mg PO DAILY 08/23/24 09/26/24 History benazepril 20 mg tablet 20 mg PO DAILY 08/23/24 09/26/24 History bupropion HCl 300 mg 24 hr tablet, 300 mg PO QAM 08/23/24 09/26/24 History extended release celecoxib 200 mg capsule 200 mg PO BID 08/23/24 09/26/24 History cyclobenzaprine 10 mg tablet 10 mg PO QPM PRN Muscle Spasm 08/23/24 09/26/24 History diclofenac sodium 1 % topical gel 1 ea topical QID 08/23/24 09/26/24 History empagliflozin 25 mg tablet 25 mg PO DAILY 08/23/24 09/26/24 History (Jardiance) fluticasone furoate 100 1 inh inhalation DAILY 08/23/24 09/26/24 History mcg-vilanterol 25 mcg/dose inhalation powder (Breo Ellipta) furosemide 20 mg tablet 20 mg PO DAILY 08/23/24 09/26/24 History isosorbide mononitrate 30 mg 30 mg PO DAILY 08/23/24 09/26/24 History tablet,extended release 24 hr levothyroxine 25 mcg tablet 25 mcg PO DAILY 08/23/24 09/26/24 History magnesium oxide 400 mg (241.3 mg 400 mg PO BID 08/23/24 09/26/24 History magnesium) tablet nateglinide 120 mg tablet 120 mg PO TID 08/23/24 09/26/24 History pantoprazole 40 mg tablet,delayed 40 mg PO BID 08/23/24 09/26/24 History release rosuvastatin 40 mg tablet 40 mg PO DAILY 08/23/24 09/26/24 History Allergies/Adverse Reactions Allergy/AdvReac Type Severity Reaction Status Date / Time liraglutide [From Victoza] Allergy ADR-Abdominal Verified 09/26/24 08:12 Pain morphine Allergy unknown Verified 09/26/24 08:12 Penicillins Allergy unknown Verified 09/26/24 08:12 Sulfa (Sulfonamide Allergy unknown Verified 09/26/24 08:12 Antibiotics) Pertinent History/Comorbid Conditions* Medical History (Updated 08/04/24 @ 17:09 by MARY ANNE Moise) Callus between toes Dysphagia DJD of left shoulder Left knee pain Osteoarthritis of left knee Rib pain on right side Enrolled in chronic care management please do not remove from active Lower respiratory infection Sprain, knee Wheezing General weakness Risk for falls Compression fracture of lumbosacral spine Decreased GFR Sciatic nerve pain Upper respiratory infection Routine lab draw History of abnormal breathing pattern Bilateral lower extremity edema Acute bacterial otitis media Hypomagnesemia Otitis media Diarrhea Otitis media Acute bacterial sinusitis po Right knee pain Acute bacterial sinusitis Oral candidiasis Elevated parathyroid hormone Shortness of breath Breast cancer screening by mammogram Osteoarthritis Bacterial sinusitis Anemia Arthritis of hand Thoracic back pain Abdominal pain Sinusitis Anxiety and depression Vitamin D deficiency Hyperlipidemia associated with type 2 diabetes mellitus Patient has history of Hyperlipidemia and is currently taking Rosuvastatin daily. Hypomagnesemia Patient has recent history of low magnesium level. She takes a supplement at home daily DM II (diabetes mellitus, type II), controlled Patient has DM II for and extended time. She was controlled previously with Victoza but stopped due to abdominal pain. The abdominal pain resolved, but patient has continued elevated glucose. Patient was trialed with Trulicity, but glucose levels remained elevated. Trulicity was discontinued, and patient was started on Rybelsus and Jardiance and continued on Metformin. Patient referred to [facility] for evaluation and treatment. Diabetic foot Patient is a diabetic with previous history of foot callous formations and under the care of a Training Administrator. She would like to be referred to [facility] Training Administrator, Dr. Melchor. Hypothyroidism Patient has history and current diagnosis of hypothyroidism. She takes Levothyroxine daily, and is compliant with medications and testing. Hypertension Patient has hypertension that is controlled with medication. She checks blood pressure at home. She is under the care of [facility]. Type 2 diabetes mellitus GERD (gastroesophageal reflux disease) COPD (chronic obstructive pulmonary disease) Chronic kidney disease Fibromyalgia Surgical History (Updated 08/21/24 @ 10:08 by Benjy Doss MD) H/O colonoscopy Acquired absence of both cervix and uterus H/O lateral meniscus repair of right knee S/P shoulder surgery Repair of right shoulder at [facility] with Dr. Dickson in 2013, then additional repair on right shoulder in 2017 in [facility] in [place]. S/P abdominal hysterectomy S/P cholecystectomy 2016 Dr. Franco Family History (Updated 10/16/19 @ 09:42 by Radha Nicholas LPN) Atrial fibrillation Myocardial infarction Cancer Social History Smoking and tobacco/nicotine status: never used tobacco/nicotine Alcohol intake: never Substance/Drug Use: never Pertinent Exam Findings alert, oriented x 3, clear to auscultation bilaterally and regular rate & rhythm Recommendations Surgery/Procedure today Coding Level of Care Code Acute Code for Chg Sharon
[2024-10-01] MEDS: sodium chloride 0.9% 500 ML 15 ML IV (07:05)
[2024-10-01 07:06] LABS: Glucose Point of Care 82 mg/dL (70-110)
--- NOTE | 2024-10-01 07:19 | ANES.PREANE2 ---
Pre-Anesthetic Assessment Height/Weight: Height 1.63 m Weight 113.398 kg Temp Pulse Resp BP Pulse Ox O2 Del Method 97.0 F L 82 18 161/91 98 Room Air 10/01/24 06:52 10/01/24 06:52 10/01/24 06:52 10/01/24 06:52 10/01/24 06:52 10/01/24 06:52 Preop Diagnosis: dysphagia Operation Date: 10/01/24 07:40 Proposed Procedures p EGD Dilation W/ Balloon 98390, R13.10(Not Applicable) - Benjy Doss MD Was Beta Pam taken within 24 hours: Yes Was Clonidine taken within 24 hours: Yes Last intake: Intake Last Liquid Date 09/30/24 Last Liquid Time 17:00 Last Solid Date 09/30/24 Last Solid Time 17:00 Social No alcohol and No tobacco Exam alert, oriented x 3, clear to auscultation bilaterally and regular rate & rhythm Airway Submandibular: within normal limits Cervical ROM: within normal limits Mallampati: Class III Dentition: false History/ROS No significant history except as noted and No significant complaints Pulmonary Chronic Obstructive Pulmonary Disease, Exertional Dyspnea and Sleep Apnea CV/HEM Hypertension None reported Hepatic None reported GI Gastroesophageal Reflux Disease Metabolic Diabetes Mellitus, Morbid Obesity and Thyroid Disease Musc/skel Lower Back Pain, Osteoarthritis/DJD and Weakness Neuropsych Depression Anesthetic Plan ASA status: 4 Anesthesia: Anesthesia Evaluation and General Risk of > 500 ml blood loss (7ml/kg in children): No Medications/Allergies Home Medications Medication Instructions Recorded Confirmed Last Taken Type naloxone 4 mg/actuation nasal spray 4 mg intranasal Q3M PRN overdose 04/11/22 09/26/24 09/26/24 History lidocaine 5 % topical patch 1 patch topical QDAY #30 ea 03/22/23 09/26/24 09/24/24 Rx hydrocodone 7.5 mg-acetaminophen 1 tab PO Q4H PRN pain #20 tabs 04/18/23 09/26/24 09/26/24 Rx 325 mg tablet spironolactone 25 mg tablet 12.5 mg (1/2 x 25 mg) PO DAILY #45 01/26/24 09/26/24 09/30/24 Rx tabs pregabalin 50 mg capsule (Lyrica) 50 mg PO BID #60 caps 06/25/24 09/26/2409/30/25 Rx dibetic shoes with 3 inserts #1 ea 08/13/24 09/26/24 09/30/24 Rx blood-glucose sensor (Dexcom G7 #6 ea 08/21/24 09/26/24 09/30/24 Rx Sensor device) albuterol sulfate 90 mcg/actuation 2 puff inhalation Q8H PRN 08/23/24 09/26/24 09/30/24 History aerosol inhaler Shortness Of Breath Or Wheezing amlodipine 10 mg tablet 10 mg PO DAILY 08/23/24 09/26/24 09/30/24 History aripiprazole 5 mg tablet 5 mg PO DAILY 08/23/24 09/26/24 09/30/24 History benazepril 20 mg tablet 20 mg PO DAILY 08/23/24 09/26/24 09/30/24 History bupropion HCl 300 mg 24 hr tablet, 300 mg PO QAM 08/23/24 09/26/24 09/30/24 History extended release celecoxib 200 mg capsule 200 mg PO BID 08/23/24 09/26/24 09/30/24 History cyclobenzaprine 10 mg tablet 10 mg PO QPM PRN Muscle Spasm 08/23/24 09/26/24 09/26/24 History diclofenac sodium 1 % topical gel 1 ea topical QID 08/23/24 09/26/24 09/30/24 History empagliflozin 25 mg tablet 25 mg PO DAILY 08/23/24 09/26/24 09/30/24 History (Jardiance) fluticasone furoate 100 1 inh inhalation DAILY 08/23/24 09/26/24 09/30/24 History mcg-vilanterol 25 mcg/dose inhalation powder (Breo Ellipta) furosemide 20 mg tablet 20 mg PO DAILY 08/23/24 09/26/24 09/30/24 History isosorbide mononitrate 30 mg 30 mg PO DAILY 08/23/24 09/26/24 09/30/24 History tablet,extended release 24 hr levothyroxine 25 mcg tablet 25 mcg PO DAILY 08/23/24 09/26/24 09/30/24 History magnesium oxide 400 mg (241.3 mg 400 mg PO BID 08/23/24 09/26/24 09/30/24 History magnesium) tablet nateglinide 120 mg tablet 120 mg PO TID 08/23/24 09/26/24 09/30/24 History pantoprazole 40 mg tablet,delayed 40 mg PO BID 08/23/24 09/26/24 09/30/24 History release rosuvastatin 40 mg tablet 40 mg PO DAILY 08/23/24 09/26/24 09/30/24 History insulin glargine 100 unit/mL (3 80 unit (0.8 mL) SUBCUT BID #15 mL 09/26/24 09/30/24 09/30/24 Rx mL) subcutaneous pen (Lantus Solostar U-100 Insulin) Allergies Allergy/AdvReac Type Severity Reaction Status Date / Time furosemide [From Lasix] Allergy ALGY-Redness Verified 10/01/24 06:46 of Skin liraglutide [From Victoza] Allergy ADR-Abdominal Verified 10/01/24 06:46 Pain morphine Allergy unknown Verified 10/01/24 06:46 Penicillins Allergy unknown Verified 10/01/24 06:46 Sulfa (Sulfonamide Allergy unknown Verified 10/01/24 06:46 Antibiotics) Current Medications Generic Name Dose Route Start Last Admin Trade Name Freq PRN Reason Stop Dose Admin Sodium Chloride 500 mls @ 15 mls/hr 10/01/24 06:36 10/01/24 07:05 Sodium Chloride 0.9% IV 10/02/24 06:35 15 mls/hr .Q24H PRN Administration COLONOSCOPY FLUIDS PFSH Anesthesia Medical History Callus between toes Dysphagia DJD of left shoulder Left knee pain Osteoarthritis of left knee Rib pain on right side Enrolled in chronic care management please do not remove from active Lower respiratory infection Sprain, knee Wheezing General weakness Risk for falls Compression fracture of lumbosacral spine Decreased GFR Sciatic nerve pain Upper respiratory infection Routine lab draw History of abnormal breathing pattern Bilateral lower extremity edema Acute bacterial otitis media Hypomagnesemia Otitis media Diarrhea Otitis media Acute bacterial sinusitis po Right knee pain Acute bacterial sinusitis Oral candidiasis Elevated parathyroid hormone Shortness of breath Breast cancer screening by mammogram Osteoarthritis Bacterial sinusitis Anemia Arthritis of hand Thoracic back pain Abdominal pain Sinusitis Anxiety and depression Vitamin D deficiency Hyperlipidemia associated with type 2 diabetes mellitus Patient has history of Hyperlipidemia and is currently taking Rosuvastatin daily. Hypomagnesemia Patient has recent history of low magnesium level. She takes a supplement at home daily DM II (diabetes mellitus, type II), controlled Patient has DM II for and extended time. She was controlled previously with Victoza but stopped due to abdominal pain. The abdominal pain resolved, but patient has continued elevated glucose. Patient was trialed with Trulicity, but glucose levels remained elevated. Trulicity was discontinued, and patient was started on Rybelsus and Jardiance and continued on Metformin. Patient referred to [facility] Endocrinology for evaluation and treatment. Diabetic foot Patient is a diabetic with previous history of foot callous formations and under the care of a Underwater Welder. She would like to be referred to [facility] Underwater Welder, Dr. Melchor. Hypothyroidism Patient has history and current diagnosis of hypothyroidism. She takes Levothyroxine daily, and is compliant with medications and testing. Hypertension Patient has hypertension that is controlled with medication. She checks blood pressure at home. She is under the care of [facility] Heart Care. Type 2 diabetes mellitus GERD (gastroesophageal reflux disease) COPD (chronic obstructive pulmonary disease) Chronic kidney disease Fibromyalgia Surgical History (Updated 08/21/24 @ 10:08 by Benjy Doss MD) H/O colonoscopy Acquired absence of both cervix and uterus H/O lateral meniscus repair of right knee S/P shoulder surgery Repair of right shoulder at [facility] with Dr. Dickson in 2013, then additional repair on right shoulder in 2017 in [facility] in [place]. S/P abdominal hysterectomy S/P cholecystectomy 2016 Dr. Franco Family History Other Atrial fibrillation Cancer Myocardial infarction Social History Smoking and tobacco/nicotine status: never used tobacco/nicotine Alcohol intake: never Substance/Drug Use: never Data Anesthesia Cardiac Studies: Echocardiogram 06/10/22 Sestamibi Stress Test (Cardiology) 06/10/22
--- NOTE | 2024-10-01 08:50 | ANE.PACU2 ---
Inpatient post-anesthesia follow up: Airway intact: Yes Vital signs: Temperature 97.6 F Pulse Rate 74 Respiratory Rate 16 Blood Pressure 140/81 Pulse Oximetry 100 Oxygen Delivery Me thod Room Air Oxygen Flow Rate Fraction of Inspir ed Oxygen Hydration adequate: Yes Nausea and vomiting: No Pain level: 1 Mental status: Baseline
== END 2024-10-01 08:45 | disposition home or self-care (01) ==
PROVIDERS: PCP Internal Medicine Medical Oncology; Visit Provider Surgery
DX: R13.10 Dysphagia, unspecified (principal); K29.50 Unspecified chronic gastritis without bleeding; K31.7 Polyp of stomach and duodenum; E11.9 Type 2 diabetes mellitus without complications; E03.9 Hypothyroidism, unspecified; K21.9 Gastro-esophageal reflux disease without esophagitis; I12.9 Hypertensive chronic kidney disease with stage 1 through stage 4 chronic kidney disease, or unspecified chronic kidney disease; N18.9 Chronic kidney disease, unspecified; M79.7 Fibromyalgia
CPT/HCPCS: 36416; 43239; 82962; 88305; 88312; 88342; J0330; J2704; J7040

== ENCOUNTER 2024-10-03 08:43 | Outpatient (CLI) | payer MEDICARE, MEDICAID, SELFPAY ==
--- NOTE | 2024-10-03 09:00 | FL_ITS ---
WS: [id number] FL barium swallow modifd [id number] REASON FOR EXAM: Difficulty swallowing FLUOROSCOPY TIME: 1min [id number] # OF SPOT FILMS: None FINDINGS: Examination was supervised by the speech therapy department. Patient examined in the sitting upright lateral position. Swallowing of barium of multiple consistencies was performed with fluoroscopic monitoring and video r ecording. No aspiration was identified. FL/FL barium swallow modifd [id number] IMPRESSION: No aspiration. A detailed report of the swallowing will be rendered by the speech therapy depa rtment.
== END 2024-10-03 08:44 | disposition home or self-care (01) ==
LOC: RAD 08:44
PROVIDERS: PCP Nurse Practitioner Family; Visit Provider Surgery
DX: R13.10 Dysphagia, unspecified (principal); R93.89 Abnormal findings on diagnostic imaging of other specified body structures
CPT/HCPCS: 74230; 92611

== ENCOUNTER → 2024-10-22 08:19 | Outpatient (BNVA) | payer MEDICARE, MEDICAID, SELFPAY | PROVIDERS: PCP Nurse Practitioner Family; Visit Provider Surgery | DX: Z09 Encounter for follow-up examination after completed treatment for conditions other than malignant neoplasm (principal); R13.10 Dysphagia, unspecified | CPT/HCPCS: 99213 ==

== ENCOUNTER → 2024-10-28 09:04 | Outpatient (BNVA) | payer MEDICARE, MEDICAID, SELFPAY | PROVIDERS: PCP Nurse Practitioner Family; Visit Provider Nurse Practitioner Family | DX: N39.0 Urinary tract infection, site not specified (principal); R10.84 Generalized abdominal pain; R94.4 Abnormal results of kidney function studies; R11.0 Nausea; R79.89 Other specified abnormal findings of blood chemistry | CPT/HCPCS: 80053; 81003; 85025; 87086 ==

== ENCOUNTER → 2024-11-01 08:52 | Outpatient (BNVA) | payer MEDICARE, MEDICAID, SELFPAY | PROVIDERS: PCP Nurse Practitioner Family; Visit Provider Nurse Practitioner Family | DX: R79.89 Other specified abnormal findings of blood chemistry (principal); N39.0 Urinary tract infection, site not specified | CPT/HCPCS: 81003; 82570; 84156 ==

== ENCOUNTER 2024-11-10 07:49 | Emergency (ER) | payer MEDICARE, MEDICAID, SELFPAY ==
[2024-11-10] VITALS (11 sets, daily range): BP systolic 118–162; BP diastolic 62–79; PULSE 66; RESP 16; TEMP 36.8; O2SAT 91–100; BMI 44.6
--- NOTE | 2024-11-10 08:19 | ECG_ITS ---
[employer] Test Date: 2024-11-10 Pat Name: Yaritza Fairbanks Department: Room: Gender: Female Field Rep: : 1955 Requested By: Anna Rowe Order Number: [id number] Reading MD: SUJATHA MCKOY Measurements Intervals [place] Rate: 57 P: 61 DE: 145 QRS: 50 QRSD: 97 T: 68 QT: 425 QTc: 414 Interpretive Statements SINUS BRADYCARDIA LOW QRS VOLTAGE IN PRECORDIAL LEADS [QRS DEFLECTION < 1.0 mV IN CHEST LEADS] Compared to ECG 09/06/2014 06:10:00 Low QRS voltage now present Sinus rhythm no longer present Intraventricular conduction delay no longer present T-wave abnormality no longer present Possible ischemia no longer present Electronically Signed On 11-12-2024 23:38:56 [employer]ESS[employer] by SUJATHA MCKOY [email or web address]
--- NOTE | 2024-11-10 08:19 | XRR_ITS ---
PROCEDURE INFORMATION: Exam: XR Abdomen Exam date and time: 11/10/2024 8:41 AM Age: 69 years old Clinical indication: Abdominal pain TECHNIQUE: Imaging protocol: Radiologic exam of the abdomen. Views: Frontal supine view of the abdomen. 1 View. COMPARISON: CR XR IVP w KUB [id number] 12/19/2018 9:56 AM FINDINGS: Gastrointestinal tract: Normal nonobstructed bowel-gas pattern. Mildly increased colonic stool burden suggesting constipation. Intraperitoneal space: Right upper quadrant clips from prior cholecystectomy. No definitive evidence of intraperitoneal free air on this supine radiograph. Bones/joints: Degenerative changes of the thoracolumbar spine. XR/XR KUB [id number] IMPRESSION: Normal nonobstructed bowel-gas pattern. Mild constipation.
[2024-11-10 08:35] LABS: Basophils # 0.1 10^3/uL (0.0-0.1); Basophils % 1.1 %; Eosinophils # 0.3 10^3/uL (0.0-0.8); Eosinophils % 4.1 %; Hematocrit 42.8 % (36-47); Lymphocytes # 1.1 10^3/uL (0.8-4.8); Lymphocytes % 17.4 %; Mean Corpuscular Hemoglobin 28.1 pg (27-33); Mean Corpuscular Volume 87.7 fl (85-98); Mean Platelet Volume 10.3 fL (7.4-10.4); Monocytes # 0.6 10^3/uL (0.2-0.9); Monocytes % 8.7 %; Neutrophils # 4.32 10^3/uL (1.8-7.7); Neutrophils % 68.5 %; Nucleated Red Blood Cells % 0 %; Platelet Count 221 10^3/cmm (157-399); Red Blood Count 4.88 10^6/uL (3.85-5.65); White Blood Count 6.31 10^3/uL (3.29-11.43)
[2024-11-10 08:51] LABS: Alanine Aminotransferase 12 U/L (0-33); Alkaline Phosphatase 107 U/L (35-105); Anion Gap 16.3 (5-19); Aspartate Amino Transferase 17 U/L (0-32); Blood Urea Nitrogen 15 mg/dL (8-23); C Reactive Protein 7.7 mg/L (0.0-4.9); Calcium 10.3 mg/dL (8.5-10.5); Carbon Dioxide 22 mmol/L (22-29); Chloride 103 mmol/L (98-107); Creatinine Clr Calc Pharmacy 55.8752; Globulin 3.2 g/dL (1.3-4.6); Glomerular Filtration Rate 44.5 mL/min (90-130); Glucose 129 mg/dL (65-115); Osmolality Calculated 287 mOsm/kg (285-295); Potassium 4.3 mmol/L (3.5-5.1); Sodium 137 mmol/L (136-145); Total Bilirubin 0.5 mg/dL (0.15-1.2); Total Protein 7.2 g/dL (6.6-8.7)
[2024-11-10] MEDS: ondansetron 2 mg/ML SDV 2 mL 4 MG IVP (08:54)
[2024-11-10] MEDS: ketorolac 30 mg/mL INJ 15 MG IVP (08:54)
[2024-11-10 08:55] LABS: Add Urine Microscopic? NO
[2024-11-10 09:04] LABS: RBC Urine 0-4 /hpf (0-2); UA Manual Slide Review YES
[2024-11-10 09:05] LABS: Bacteria Urine 1+ /hpf; Hyaline Casts Urine 15-25 /lpf; Squamous Epithelial Cell Urine 15-25 /hpf (0-5)
[2024-11-10 09:06] LABS: Charge for UA Resulting for Rev
[2024-11-10 09:07] LABS: Bilirubin Urine Negative (Negative); Blood Urine Negative (Negative); Glucose Urine UA 3+ (Normal); Ketones Urine Negative (Negative); Leukocyte Esterase Urine Negative (Negative); Nitrate Urine Negative (Negative); Protein Urine Trace (Negative); Urine Appearance Cloudy (CLEAR); Urine Color Yellow (Yellow)
[2024-11-10 09:08] LABS: Specific Gravity, Urine 1.053 (1.005-1.030)
[2024-11-10] MEDS: sodium chloride 0.9% 1,000 ML 999 ML IV (09:37)
--- NOTE | 2024-11-10 10:34 | W.ED.ABDPA2 ---
HPI - Abdominal Pain General: Chief Complaint: Abdominal Pain Stated Complaint: back & abd cramps Time Seen by Provider: 11/10/24 08:00 History of Present Illness: This patient is a 69 year old presenting with left flank pain. She reports that the symptoms started on Monday with a sharp abrupt onset. She has episodes of worsening pain, but it never goes away. Nothing in particular makes it better or worse, although she says that sometimes it is worse with laying down flat in her bed. She has a history of back problems in her lower back. She also has had shingles that effected the left flank area. She has been told that she had diverticulosis when she had a colonoscopy. She was seen at [facility] last night and had a CT with contrast that was normal. She was recently treated for a UTI but never had any symptoms. The presenting symptoms that led to that diagnosis was this pain, which apparently actually started more than a week ago, but didn't last. She denies dysuria, urgency or frequency. No nausea or loss of appetite. She has been having some constipation for the past week or so. No fever. Related Data Home Medications ?Medication ?Instructions ?Recorded ?Confirmed naloxone 4 mg/actuation nasal spray 4 mg intranasal Q3M PRN overdose 04/11/22 11/10/24 albuterol sulfate 90 mcg/actuation 2 puff inhalation Q8H PRN 08/23/24 11/10/24 aerosol inhaler Shortness Of Breath Or Wheezing amlodipine 10 mg tablet 10 mg PO DAILY 08/23/24 11/10/24 benazepril 20 mg tablet 20 mg PO DAILY 08/23/24 11/10/24 bupropion HCl 300 mg 24 hr tablet, 300 mg PO QAM 08/23/24 11/10/24 extended release cyclobenzaprine 10 mg tablet 10 mg PO QPM PRN Muscle Spasm 08/23/24 11/10/24 empagliflozin 25 mg tablet 25 mg PO DAILY 08/23/24 11/10/24 (Jardiance) fluticasone furoate 100 1 inh inhalation DAILY 08/23/24 11/10/24 mcg-vilanterol 25 mcg/dose inhalation powder (Breo Ellipta) furosemide 20 mg tablet 20 mg PO DAILY 08/23/24 11/10/24 isosorbide mononitrate 30 mg 30 mg PO DAILY 08/23/24 11/10/24 tablet,extended release 24 hr levothyroxine 25 mcg tablet 25 mcg PO DAILY 08/23/24 11/10/24 magnesium oxide 400 mg (241.3 mg 400 mg PO BID 08/23/24 11/10/24 magnesium) tablet nateglinide 120 mg tablet 120 mg PO TID 08/23/24 11/10/24 rosuvastatin 40 mg tablet 40 mg PO DAILY 08/23/24 11/10/24 Previous Rx's ?Medication ?Instructions ?Recorded lidocaine 5 % topical patch 1 patch topical QDAY #30 ea 03/22/23 hydrocodone 7.5 mg-acetaminophen 1 tab PO Q4H PRN pain #20 tabs 04/18/23 325 mg tablet pregabalin 50 mg capsule (Lyrica) 50 mg PO BID #60 caps 06/25/24 dibetic shoes with 3 inserts #1 ea 08/13/24 insulin glargine 100 unit/mL (3 80 unit (0.8 mL) SUBCUT BID #15 mL 09/26/24 mL) subcutaneous pen (Lantus Solostar U-100 Insulin) celecoxib 200 mg capsule 200 mg PO BID #60 caps 10/15/24 pantoprazole 40 mg tablet,delayed 40 mg PO BID 1 month #60 tabs 10/22/24 release (Protonix) ondansetron HCl 4 mg tablet 4 mg PO Q8H 15 days #30 tabs 10/28/24 blood-glucose sensor (Dexcom G7 #6 ea 11/01/24 Sensor device) pen needle, diabetic 32 gauge x #200 ea 11/04/2409/21 (BD Ultra-Fine Micro Pen Needle) ciprofloxacin HCl 250 mg tablet 250 mg PO BID 5 days #10 tabs 11/05/24 (Cipro) lactulose 10 gram/15 mL oral 10 g (15 mL) PO DAILY PRN 11/10/24 solution constipation #473 mL Allergies Allergy/AdvReac Type Severity Reaction Status Date / Time Latex, Natural Rubber Allergy ALGY-Rash Verified 11/10/24 08:54 liraglutide (From Victoza) Allergy ADR-Abdominal Verified 11/01/24 08:42 Pain morphine Allergy unknown Verified 11/01/24 08:42 Penicillins Allergy unknown Verified 11/01/24 08:42 Sulfa (Sulfonamide Allergy unknown Verified 11/01/24 08:42 Antibiotics) [facility] ED PFS: Medical History (Updated 11/10/24 @ 10:37 by Anna Hobson MD) Elevated serum creatinine Urinary tract infection Callus between toes Dysphagia DJD of left shoulder Left knee pain Osteoarthritis of left knee Rib pain on right side Enrolled in chronic care management please do not remove from active Lower respiratory infection Sprain, knee Wheezing General weakness Risk for falls Compression fracture of lumbosacral spine Decreased GFR Sciatic nerve pain Upper respiratory infection Routine lab draw History of abnormal breathing pattern Bilateral lower extremity edema Acute bacterial otitis media Hypomagnesemia Otitis media Diarrhea Otitis media Acute bacterial sinusitis po Right knee pain Acute bacterial sinusitis Oral candidiasis Elevated parathyroid hormone Shortness of breath Breast cancer screening by mammogram Osteoarthritis Bacterial sinusitis Anemia Arthritis of hand Thoracic back pain Abdominal pain Sinusitis Anxiety and depression Vitamin D deficiency Hyperlipidemia associated with type 2 diabetes mellitus Patient has history of Hyperlipidemia and is currently taking Rosuvastatin daily. Hypomagnesemia Patient has recent history of low magnesium level. She takes a supplement at home daily DM II (diabetes mellitus, type II), controlled Patient has DM II for and extended time. She was controlled previously with Victoza but stopped due to abdominal pain. The abdominal pain resolved, but patient has continued elevated glucose. Patient was trialed with Trulicity, but glucose levels remained elevated. Trulicity was discontinued, and patient was started on Rybelsus and Jardiance and continued on Metformin. Patient referred to [facility] for evaluation and treatment. Diabetic foot Patient is a diabetic with previous history of foot callous formations and under the care of a Industrial Order Clerk. She would like to be referred to [facility] Industrial Order Clerk, Dr. Melchor. Hypothyroidism Patient has history and current diagnosis of hypothyroidism. She takes Levothyroxine daily, and is compliant with medications and testing. Hypertension Patient has hypertension that is controlled with medication. She checks blood pressure at home. She is under the care of [facility]. Type 2 diabetes mellitus GERD (gastroesophageal reflux disease) COPD (chronic obstructive pulmonary disease) Chronic kidney disease Fibromyalgia Surgical History H/O colonoscopy Acquired absence of both cervix and uterus H/O lateral meniscus repair of right knee S/P shoulder surgery Repair of right shoulder at [facility] with Dr. Dickson in 2013, then additional repair on right shoulder in 2017 in [facility] in [place]. S/P abdominal hysterectomy S/P cholecystectomy 2017 Dr. Franco Family History Other Atrial fibrillation Cancer Myocardial infarction Social History Smoking and tobacco/nicotine status: never used tobacco/nicotine Alcohol intake: never Substance/Drug Use: never Physical Exam Const: COMMON NORMALS: no acute distress, patient oriented x3, no limitations and alert GENERAL APPEARANCE: cooperative and comfortable HENMT: HEAD & SCALP: normal to inspection FACE & SINUS: normal facial exam Eye: GENERAL EYE: appearance normal, both eyes and all related structures Neck/C-Spine: COMMON NORMALS: supple, no meningeal signs and no JVD Chest: COMMONS NORMALS: normal inspection of the chest Resp: COMMON NORMALS: normal respiratory effort, No use of accessory muscles and clear to auscultation bilaterally AUSCULTATION: clear to auscultation bilaterally Cardio: COMMON NORMALS: no JVD, regular rate, regular rhythm and No murmurs present (Cardio) RATE: regular rate RHYTHM: regular rhythm GI: COMMON NORMALS: Normal to inspection, nondistended, normoactive bowel sounds present, Soft to palpation and non-tender INSPECTION: Yes normal to inspection AUSCULTATION: Yes normoactive bowel sounds PALPATION: Yes Soft to palpation and Yes Tenderness to palpation present (GI) Details: LLQ (mild) Back/Pelvis: COMMON NORMALS: thoracic and lumbar spine normal to inspection Extremity: COMMON NORMALS: normal to inspection Neuro: COMMON NORMALS: patient oriented x3, moves all extremities, no focal motor deficits and no sensory deficits noted SENSORIUM/ORIENTATION: Yes alert MENINGEAL SIGNS: Yes no meningeal signs Psych: COMMON NORMALS: mental status grossly normal, cooperative and normal affect Skin: COMMON NORMALS: no rashes or lesions noted and turgor normal GENERAL SKIN EXAM: no rashes or lesions noted and turgor normal Course Vital Signs: Vital signs: Vital Signs Temperature 98.2 F 11/10/24 07:54 Pulse Rate 66 11/10/24 07:54 Respiratory Rate 16 11/10/24 07:54 Blood Pressure 118/69 11/10/24 12:00 Pulse Oximetry 100 11/10/24 12:00 Oxygen Delivery Me thod Room Air 11/10/24 07:54 MDM - Abdominal Pain Medical Decision Making I was able to obtain the ED chart from the ED visit last night at [facility]. She did have normal labs and a normal CT. The doctor had discussed the possibility of shingles or post herpetic neuralgia. I did a KUB here and there is some right sided constipation. The patient reports feeling better after a dose of IV toradol and she was ready to go home. I prescribed lactulose and we discussed outpatient follow up with her PCP if not improving. Lab Data 11/10/24 08:29 11/10/24 08:29 Labs/Radiology: Radiology Impressions KUB X-Ray 11/10/24 08:19 IMPRESSION: Normal nonobstructed bowel-gas pattern. Mild constipation. Laboratory Results WBC 6.31 10^3/uL (3.29-11.43) 11/10/24 08:29 RBC 4.88 10^6/uL (3.85-5.65) 11/10/24 08:29 Hgb 13.70 g/dL (11.27-16.99) 11/10/24 08:29 Hct 42.8 % (36-47) 11/10/24 08: MCV 87.7 fl (85-98) 11/10/24 08: MCH 28.1 pg (27-33) 11/10/24 08: MCHC 32.0 g/dL (30-55) 11/10/24 08: RDW 15.0 % (12.1-15.1) 11/10/24 08:29 Plt Count 221 10^3/cmm (157-399) 11/10/24 08:29 MPV 10.3 fL (7.4-10.4) 11/10/24 08:29 Neut % (Auto) 68.5 % 11/10/24 08: Lymph % (Auto) 17.4 % 11/10/24 08: Moody % (Auto) 8.7 % 11/10/24 08:29 Eos % (Auto) 4.1 % 11/10/24 08:29 Baso % (Auto) 1.1 % 11/10/24 08: Neut # (Auto) 4.32 10^3/uL (1.8-7.7) 11/10/24 08: Lymph # (Auto) 1.1 10^3/uL (0.8-4.8) 11/10/24 08: Moody # (Auto) 0.6 10^3/uL (0.2-0.9) 11/10/24 08: Eos # (Auto) 0.3 10^3/uL (0.0-0.8) 11/10/24 08: Baso # (Auto) 0.1 10^3/uL (0.0-0.1) 11/10/24 08: Nucleated RBC % (auto) 0 % 11/10/24 08: Nucleated RBCs # 0.0 /100WBC 11/10/24 08: Sodium 137 mmol/L (136-145) 11/10/24 08: Potassium 4.3 mmol/L (3.5-5.1) 11/10/24 08: Chloride 103 mmol/L (98-107) 11/10/24 08: Carbon Dioxide 22 mmol/L (22-29) 11/10/24 08: Anion Gap 16.3 (5-19) 11/10/24 08: BUN 15 mg/dL (8-23) 11/10/24 08: Creatinine 1.2 mg/dL (0.5-0.9) H 11/10/24 08: GFR Calculation 44.5 mL/min (90-130) L 11/10/24 08: Glucose 129 mg/dL (65-115) H 11/10/24 08: Calculated Osmolality 287 mOsm/kg (285-295) 11/10/24 08: Calcium 10.3 mg/dL (8.5-10.5) 11/10/24 08: Total Bilirubin 0.5 mg/dL (0.15-1.2) 11/10/24 08: AST 17 U/L (0-32) 11/10/24 08: ALT 12 U/L (0-33) 11/10/24 08: Alkaline Phosphatase 107 U/L (35-105) H 11/10/24 08: C-Reactive Protein 7.7 mg/L (0.0-4.9) H 11/10/24 08:29 Total Protein 7.2 g/dL (6.6-8.7) 11/10/24 08:29 Albumin 4.0 g/dL (3.5-5.2) 11/10/24 08:29 Globulin 3.2 g/dL (1.3-4.6) 11/10/24 08:29 Urine Color Yellow (Yellow) 11/10/24 08:47 Urine Appearance Cloudy (CLEAR) A 11/10/24 08:47 Urine pH 5.0 (5-7) 11/10/24 08:47 Ur Specific Laura 1.053 (1.005-1.030) H 11/10/24 08:47 Urine Protein Trace (Negative) A 11/10/24 08:47 Urine Glucose (UA) 3+ (Normal) H 11/10/24 08:47 Urine Ketones Negative (Negative) 11/10/24 08:47 Urine Blood Negative (Negative) 11/10/24 08:47 Urine Nitrate Negative (Negative) 11/10/24 08:47 Urine Bilirubin Negative (Negative) 11/10/24 08:47 Urine Urobilinogen 1.0 mg/dL (Negative) 11/10/24 08:47 Ur Leukocyte Esterase Negative (Negative) 11/10/24 08:47 Urine RBC 0-4 /hpf (0-2) H 11/10/24 08:47 Urine WBC 10-15 /hpf (0-5) H 11/10/24 08:47 Ur Squamous Epith Cells 15-25 /hpf (0-5) H 11/10/24 08:47 Amorphous Sediment Not Reportable 11/10/24 08:47 Urine Bacteria 1+ /hpf (NONE) H 11/10/24 08:47 Hyaline Casts 15-25 /lpf H 11/10/24 08:47 All radiology interpretation(s) finalized by discharge Discharge Plan Discharge Patient Disposition: Home Clinical Impression: Abdominal pain, Constipation, Post herpetic neuralgia Condition: Stable Prescriptions: New lactulose 10 gram/15 mL solution 10 g PO DAILY MDD no more than 2 doses/12 hrs PRN (Reason: constipation) Qty: 473 0RF No Action (DME) dibetic shoes with 3 inserts See Rx Instructions .Route .MEDSUPPLY Qty: 1 0RF Rx Instructions: As directed to the shoe guys naloxone 4 mg/actuation spray,non-aerosol 4 mg intranasal Q3M PRN (Reason: overdose) Rx Instructions: spray 1 dose into ONE nostril; alternate nostrils w each dose until help arrives pantoprazole [Protonix] 40 mg tablet,delayed release (DR/EC) 40 mg PO BID 30 Days Qty: 60 6RF ondansetron HCl 4 mg tablet 4 mg PO Q8H 15 Days Qty: 30 0RF lidocaine 5 % adhesive patch,medicated 1 patch TOPICAL QDAY Qty: 30 0RF pregabalin [Lyrica] 50 mg capsule 50 mg PO BID Qty: 60 3RF insulin glargine [Lantus Solostar U-100 Insulin] 100 unit/mL (3 mL) insulin pen 80 unit SUBCUT BID Qty: 15 3RF Rx Instructions: ADMINISTER 80 UNITS UNDER THE SKIN TWICE DAILY celecoxib 200 mg capsule 200 mg PO BID Qty: 60 0RF Rx Instructions: TAKE 1 CAPSULE BY MOUTH TWICE DAILY (DME) DexInkling Systems G7 Sensor Device See Rx Instructions .ROUTE .COMPLEX Qty: 6 0RF Dose Instruction: USE TO CHECK BLOOD SUGAR (CHANGE EVERY 10 DAYS) Rx Instructions: USE TO CHECK BLOOD SUGAR (CHANGE EVERY 10 DAYS) (DME) pen needle, diabetic [BD Ultra-Fine Micro Pen Needle] 32 gauge x 1/4 needle See Rx Instructions .ROUTE .COMPLEX Qty: 200 2RF Dose Instruction: USE WITH INSULIN TWICE DAILY Rx Instructions: USE WITH INSULIN TWICE DAILY ciprofloxacin HCl [Cipro] 250 mg tablet 250 mg PO BID 5 Days Qty: 10 0RF cyclobenzaprine 10 mg tablet 10 mg PO QPM PRN (Reason: Muscle Spasm) Rx Instructions: TAKE 1 TABLET BY MOUTH ONCE A NIGHT AT BEDTIME AND MAY TAKE one during THE DAY NEEDED FOR MUSCLE SPASMS nateglinide 120 mg tablet 120 mg PO TID Rx Instructions: TAKE 1 TABLET BY MOUTH THREE TIMES DAILY BEFORE MEALS isosorbide mononitrate 30 mg tablet extended release 24 hr 30 mg PO DAILY Rx Instructions: TAKE 1 TABLET BY MOUTH EVERY MORNING levothyroxine 25 mcg tablet 25 mcg PO DAILY Rx Instructions: TAKE 1 TABLET BY MOUTH EVERY DAY magnesium oxide 400 mg (241.3 mg magnesium) tablet 400 mg PO BID Rx Instructions: TAKE 1 TABLET BY MOUTH TWICE DAILY FOR 90 DAYS amlodipine 10 mg tablet 10 mg PO DAILY Rx Instructions: TAKE 1 TABLET BY MOUTH DAILY benazepril 20 mg tablet 20 mg PO DAILY Rx Instructions: TAKE 1 TABLET BY MOUTH EVERY DAY furosemide 20 mg tablet 20 mg PO DAILY Rx Instructions: TAKE 1 TABLET BY MOUTH DAILY albuterol sulfate 90 mcg/actuation HFA aerosol inhaler 2 puff inhalation Q8H PRN (Reason: Shortness Of Breath Or Wheezing) Rx Instructions: INHALE 2 PUFFS BY MOUTH EVERY 8 HOURS NEEDED FOR SHORTNESS OF BREATH OR WHEEZING rosuvastatin 40 mg tablet 40 mg PO DAILY Rx Instructions: TAKE 1 TABLET BY MOUTH DAILY bupropion HCl 300 mg tablet extended release 24 hr 300 mg PO QAM Rx Instructions: TAKE 1 TABLET BY MOUTH EVERY MORNING fluticasone furoate-vilanterol [Breo Ellipta] 100-25 mcg/dose blister with device 1 inh inhalation DAILY Rx Instructions: USE 1 INHALATION BY MOUTH EVERY DAY Jardiance 25 mg tablet 25 mg PO DAILY Rx Instructions: TAKE 1 TABLET BY MOUTH DAILY hydrocodone-acetaminophen 7.5-325 mg tablet 1 tab PO Q4H PRN (Reason: pain) Qty: 20 0RF Discharge Orders: Discharge ED (Routine); Ordered 11/10/24 Ordered By: Anna Hobson Referrals: ALAINA Hector, EMERGENCY ROOM DOCTOR [Primary Care Provider] - Discharge Diet: Advance as tolerated Discharge Activity: Increase activity as tolerated Patient Instructions: Abdominal Pain (ED), Opioid Safety, Pain Management Activity Restrictions/Additional Instructions: Follow up with your primary care provider within 3 days if not improving, and return to the ED if worse in any way. Print Language: Belgian Coding Level of Care Code ED Tobacco Drying Machine Operator for Lesa Herrera
== END 2024-11-10 12:45 | disposition home or self-care (01) ==
PROVIDERS: Emergency Provider Emergency Medicine; PCP Nurse Practitioner Family
DX: R10.9 Unspecified abdominal pain (principal); K59.00 Constipation, unspecified; B02.29 Other postherpetic nervous system involvement; Z79.4 Long term (current) use of insulin; E78.5 Hyperlipidemia, unspecified; J44.9 Chronic obstructive pulmonary disease, unspecified; E11.22 Type 2 diabetes mellitus with diabetic chronic kidney disease; I12.9 Hypertensive chronic kidney disease with stage 1 through stage 4 chronic kidney disease, or unspecified chronic kidney disease; N18.9 Chronic kidney disease, unspecified
CPT/HCPCS: 36415; 74018; 80053; 81003; 85025; 86140; 93005; 96361; 96374; 96375; 99285; J1885; J2405; J7030

== ENCOUNTER → 2024-12-26 07:57 | Outpatient (BNVA) | payer MEDICARE, MEDICAID, SELFPAY | PROVIDERS: PCP Nurse Practitioner Family; Visit Provider Podiatrist Foot & Ankle Surgery | DX: E11.69 Type 2 diabetes mellitus with other specified complication (principal); L60.3 Nail dystrophy; L84 Corns and callosities; I73.9 Peripheral vascular disease, unspecified; Z79.4 Long term (current) use of insulin | CPT/HCPCS: 11056; 11721 ==

== ENCOUNTER → 2024-12-31 10:42 | Outpatient (BNVA) | payer MEDICARE, MEDICAID, SELFPAY | PROVIDERS: PCP Nurse Practitioner Family; Visit Provider Nurse Practitioner Family | DX: N30.00 Acute cystitis without hematuria (principal) | CPT/HCPCS: 81003 ==

== ENCOUNTER 2025-01-10 13:41 | Outpatient (CLI) | payer MEDICARE, MEDICAID, SELFPAY ==
--- NOTE | 2025-01-10 13:47 | XR_ITS ---
WS: [id number] SCREENING DEXA SCAN Cryptonator CLINICAL INFORMATION: VIT D DEFICIENCY COMPARISON: 2022 FINDINGS: The L1-L4 bone mineral density measures 1.144 g/cm2. This corresponds to a T score score of -0.3 and Z score of 0.2. Left femoral neck bone mineral density measures 0.883 g/cm2. This corresponds to a T score of -1.0 and Z score of -0.4. Right femoral neck bone mineral density measures 0.874 g/cm2. This corresponds to a T score -1.1of and Z score of -0.5. Mean femoral neck bone mineral density measures 0.879 g/cm2. This corresponds to a T score of -1.0 and Z score of -0.4. XR/XR DEXA axial skeleton* [id number] IMPRESSION: Normal bone mineralization lumbar spine. Osteopenia femoral necks Patient's FRAX calculated 10 year probability for major osteoporotic fracture i s 14.8% and osteoporotic hip fracture is 2.3%.
== END 2025-01-10 13:42 | disposition home or self-care (01) ==
LOC: RAD 13:42
PROVIDERS: PCP Nurse Practitioner Family; Visit Provider Internal Medicine
DX: E21.0 Primary hyperparathyroidism (principal); M85.88 Other specified disorders of bone density and structure, other site
CPT/HCPCS: 77080

== ENCOUNTER → 2025-01-17 09:52 | Outpatient (BNVA) | payer MEDICARE, MEDICAID, SELFPAY | PROVIDERS: PCP Nurse Practitioner Family; Visit Provider Internal Medicine | DX: E34.9 Endocrine disorder, unspecified (principal); E11.69 Type 2 diabetes mellitus with other specified complication; E78.5 Hyperlipidemia, unspecified; E03.9 Hypothyroidism, unspecified; N18.9 Chronic kidney disease, unspecified; E78.2 Mixed hyperlipidemia; E21.0 Primary hyperparathyroidism; E11.40 Type 2 diabetes mellitus with diabetic neuropathy, unspecified; E11.65 Type 2 diabetes mellitus with hyperglycemia | CPT/HCPCS: 80053; 80061; 82043; 82310; 83036; 83970; 84439; 84443 ==

== ENCOUNTER → 2025-01-30 08:55 | Outpatient (BNVA) | payer MEDICARE, MEDICAID, SELFPAY | PROVIDERS: PCP Nurse Practitioner Family; Visit Provider Internal Medicine | DX: E11.65 Type 2 diabetes mellitus with hyperglycemia (principal); E11.628 Type 2 diabetes mellitus with other skin complications; E78.2 Mixed hyperlipidemia; E21.0 Primary hyperparathyroidism; E83.52 Hypercalcemia; E11.40 Type 2 diabetes mellitus with diabetic neuropathy, unspecified; E03.9 Hypothyroidism, unspecified; M79.7 Fibromyalgia | CPT/HCPCS: 36415; 80053; 80061; 82044; 82306; 83036 ==

== ENCOUNTER → 2025-02-11 08:02 | Outpatient (BNVA) | payer MEDICARE, MEDICAID, SELFPAY | PROVIDERS: PCP Nurse Practitioner Family; Visit Provider Nurse Practitioner Family | DX: E11.65 Type 2 diabetes mellitus with hyperglycemia (principal); M79.7 Fibromyalgia; E78.2 Mixed hyperlipidemia; R79.89 Other specified abnormal findings of blood chemistry; E04.1 Nontoxic single thyroid nodule; E11.40 Type 2 diabetes mellitus with diabetic neuropathy, unspecified; E55.9 Vitamin D deficiency, unspecified; E11.69 Type 2 diabetes mellitus with other specified complication; E78.5 Hyperlipidemia, unspecified; E03.9 Hypothyroidism, unspecified | CPT/HCPCS: 80053; 80061; 81003; 82306; 83036; 84443; 85025 ==

== ENCOUNTER → 2025-02-13 08:26 | Outpatient (BNVA) | payer MEDICARE, MEDICAID, SELFPAY | PROVIDERS: PCP Nurse Practitioner Family; Visit Provider Nurse Practitioner Family | DX: M72.0 Palmar fascial fibromatosis [Dupuytren] (principal); M19.042 Primary osteoarthritis, left hand | CPT/HCPCS: 73130; 84550; 85651; 86038; 86140 ==

== ENCOUNTER → 2025-02-25 07:54 | Outpatient (BNVA) | payer MEDICARE, MEDICAID, SELFPAY | PROVIDERS: PCP Nurse Practitioner Family; Visit Provider Podiatrist Foot & Ankle Surgery | DX: E11.69 Type 2 diabetes mellitus with other specified complication (principal); L60.3 Nail dystrophy; I73.9 Peripheral vascular disease, unspecified; L84 Corns and callosities; Z79.4 Long term (current) use of insulin | CPT/HCPCS: 11721 ==

== ENCOUNTER → 2025-04-04 11:28 | Outpatient (BNVA) | payer MEDICARE, MEDICAID, SELFPAY | PROVIDERS: PCP Nurse Practitioner Family; Visit Provider Nurse Practitioner Family | DX: N18.9 Chronic kidney disease, unspecified (principal); M10.9 Gout, unspecified | CPT/HCPCS: 80053 ==

== ENCOUNTER → 2025-04-08 09:26 | Outpatient (BNVA) | payer MEDICARE, MEDICAID, SELFPAY | PROVIDERS: PCP Nurse Practitioner Family; Visit Provider Surgery | DX: Z12.11 Encounter for screening for malignant neoplasm of colon (principal) | CPT/HCPCS: 99024; 99214 ==

== ENCOUNTER → 2025-04-15 08:12 | Outpatient (BNVA) | payer MEDICARE, MEDICAID, SELFPAY | PROVIDERS: PCP Nurse Practitioner Family; Visit Provider Nurse Practitioner Family | DX: R94.4 Abnormal results of kidney function studies (principal) | CPT/HCPCS: 80053 ==

== ENCOUNTER 2025-04-29 09:21 | Outpatient (CLI) | payer MEDICARE, MEDICAID, SELFPAY ==
--- NOTE | 2025-04-29 09:20 | MM_ITS ---
WS: [id number] BILATERAL 3D TOMOSYNTHESIS DIGITAL SCREENING MAMMOGRAM WITH CAD CLINICAL INFORMATION: Z12.39 - Encounter for other screening for malignant neop... HISTORY: Screening mammogram. No current complaints. COMPARISON: 2023 TECHNIQUE: Bilateral CC and MLO views. FINDINGS: Fatty-replaced breasts bilaterally. No suspicious focal mass, asymmetry, calcifications, or architectural distortion. No evidence of malignancy. A few incidental punctate and secretory calcifications. MM/MM [facility] tomosynthesis [id number] IMPRESSION: DENSITY: The breasts are almost entirely fatty. BI-RADS: 2 - Benign. FOLLOW UP: 1 Year Follow-up Recommend return to annual screening mammography.
== END 2025-04-29 09:22 | disposition home or self-care (01) ==
LOC: MOBLMAM 09:25
PROVIDERS: PCP Nurse Practitioner Family; Visit Provider Nurse Practitioner Family
DX: Z12.31 Encounter for screening mammogram for malignant neoplasm of breast (principal)
CPT/HCPCS: 77063; 77067

== ENCOUNTER → 2025-05-01 07:57 | Outpatient (BNVA) | payer OTHER, MEDICAID, SELFPAY | PROVIDERS: PCP Nurse Practitioner Family; Visit Provider Internal Medicine | DX: E10.65 Type 1 diabetes mellitus with hyperglycemia (principal); E34.9 Endocrine disorder, unspecified; E78.5 Hyperlipidemia, unspecified; E03.9 Hypothyroidism, unspecified; E21.0 Primary hyperparathyroidism; E78.2 Mixed hyperlipidemia | CPT/HCPCS: 99214 ==

== ENCOUNTER 2025-05-15 07:23 | Day surgery (SDC) | payer OTHER, MEDICAID, SELFPAY ==
--- NOTE | 2025-05-15 07:34 | W.PM.OPSFHP ---
Same Day Surgery H&P Indication for Procedure/HPI DATE OF PROCEDURE: May 15, 2025 CHIEF COMPLAINT/INDICATIONFOR SURGICAL PROCEDURE: need for screening colonoscopy PREOP DIAGNOSIS: need for screening colonoscopy PLANNED PROCEDURE: Operation Date: 05/15/25 09:00 Proposed Procedures p Colonoscopy [id number] Z12.11(Not Applicable) - Benjy Doss MD Medications/Allergies* Home Medications ?Medication ?Instructions ?Recorded ?Confirmed ?Type naloxone 4 mg/actuation nasal spray 4 mg intranasal Q3M PRN overdose 04/11/22 05/12/25 History albuterol sulfate 90 mcg/actuation 2 puff inhalation Q8H PRN 08/23/24 05/12/25 History aerosol inhaler Shortness Of Breath Or Wheezing amlodipine 10 mg tablet 10 mg PO DAILY 08/23/24 05/12/25 History fluticasone furoate 100 1 inh inhalation DAILY 08/23/24 05/12/25 History mcg-vilanterol 25 mcg/dose inhalation powder (Breo Ellipta) furosemide 20 mg tablet 20 mg PO DAILY 08/23/24 05/12/25 History isosorbide mononitrate 30 mg 30 mg PO DAILY 08/23/24 05/12/25 History tablet,extended release 24 hr levothyroxine 25 mcg tablet 25 mcg PO DAILY 08/23/24 05/12/25 History magnesium oxide 400 mg (241.3 mg 400 mg PO BID 08/23/24 05/12/25 History magnesium) tablet nateglinide 120 mg tablet 120 mg PO TID 08/23/24 05/12/25 History prednisone 20 mg tablet 20 mg PO DAILY 04/04/25 05/12/25 History cyclobenzaprine 10 mg tablet 10 mg PO BID PRN Muscle Spasm 05/12/25 05/12/25 History empagliflozin 25 mg tablet 25 mg PO DAILY 05/12/25 05/12/25 History (Jardiance) insulin glargine 100 unit/mL (3 80 unit SUBCUT BID 05/12/25 05/12/25 History mL) subcutaneous pen (Lantus Solostar U-100 Insulin) rosuvastatin 40 mg tablet 40 mg PO DAILY 05/12/25 05/12/25 History Allergies/Adverse Reactions Allergy/AdvReac Type Severity Reaction Status Date / Time Latex, Natural Rubber Allergy ALGY-Rash Verified 05/12/25 11:43 liraglutide (From Victoza) Allergy ADR-Abdominal Verified 05/12/25 11:43 Pain morphine Allergy unknown Verified 05/12/25 11:43 Penicillins Allergy unknown Verified 05/12/25 11:43 Sulfa (Sulfonamide Allergy unknown Verified 05/12/25 11:43 Antibiotics) Pertinent History/Comorbid Conditions* Medical History (Updated 04/21/25 @ 08:37 by MARY ANNE Moise) Otitis media, chronic, bilateral Right-sided Meneses's palsy Gout Colon cancer screening Pseudogout of joint of left hand Palmar fasciitis Chronic fatigue Sleep apnea Post herpetic neuralgia Xerostomia Environmental and seasonal allergies Elevated serum creatinine Urinary tract infection Callus between toes Dysphagia DJD of left shoulder Left knee pain Osteoarthritis of left knee Rib pain on right side Enrolled in chronic care management please do not remove from active Lower respiratory infection Sprain, knee Wheezing General weakness Risk for falls Compression fracture of lumbosacral spine Decreased GFR Right sciatic nerve pain Upper respiratory infection Routine lab draw History of abnormal breathing pattern Bilateral lower extremity edema Acute bacterial otitis media Hypomagnesemia Otitis media Diarrhea Otitis media Acute bacterial sinusitis po Right knee pain Acute bacterial sinusitis Oral candidiasis Elevated parathyroid hormone Shortness of breath Breast cancer screening by mammogram Osteoarthritis Bacterial sinusitis Anemia Arthritis of hand Thoracic back pain Abdominal pain Sinusitis Anxiety and depression Vitamin D deficiency Hyperlipidemia associated with type 2 diabetes mellitus Patient has history of Hyperlipidemia and is currently taking Rosuvastatin daily. Hypomagnesemia Patient has recent history of low magnesium level. She takes a supplement at home daily DM II (diabetes mellitus, type II), controlled Patient has DM II for and extended time. She was controlled previously with Victoza but stopped due to abdominal pain. The abdominal pain resolved, but patient has continued elevated glucose. Patient was trialed with Trulicity, but glucose levels remained elevated. Trulicity was discontinued, and patient was started on Rybelsus and Jardiance and continued on Metformin. Patient referred to [facility] for evaluation and treatment. Diabetic foot Patient is a diabetic with previous history of foot callous formations and under the care of a Memory Care Director. She would like to be referred to [facility] Memory Care Director, Dr. Melchor. Hypothyroidism Patient has history and current diagnosis of hypothyroidism. She takes Levothyroxine daily, and is compliant with medications and testing. Hypertension Patient has hypertension that is controlled with medication. She checks blood pressure at home. She is under the care of [facility]. Type 2 diabetes mellitus GERD (gastroesophageal reflux disease) COPD (chronic obstructive pulmonary disease) Chronic kidney disease Fibromyalgia Surgical History (Updated 12/27/24 @ 21:32 by MARY ANNE Moise) S/P carpal tunnel release History of esophagogastroduodenoscopy (EGD) H/O colonoscopy Acquired absence of both cervix and uterus H/O lateral meniscus repair of right knee S/P shoulder surgery Repair of right shoulder at [facility] with Dr. Dickson in 2013, then additional repair on right shoulder in 2017 in [facility] in [place]. S/P abdominal hysterectomy S/P cholecystectomy 2016 Dr. Franco Family History (Updated 10/16/19 @ 09:42 by Radha Nicholas LPN) Atrial fibrillation Myocardial infarction Cancer Social History Smoking and tobacco/nicotine status: never used tobacco/nicotine Alcohol intake: never Substance/Drug Use: never Pertinent Exam Findings alert, oriented x 3, clear to auscultation bilaterally and regular rate & rhythm Recommendations Surgery/Procedure today Coding Level of Care Code Acute Code for Chg Fwd
[2025-05-15 07:37] VITALS: BP 174/107; PULSE 77; RESP 18; TEMP 36.3; O2SAT 96; BMI 42.9
--- NOTE | 2025-05-15 08:01 | ANES.PREANE2 ---
Pre-Anesthetic Assessment Height/Weight: Height 1.63 m Weight 113.398 kg Temp Pulse Resp BP Pulse Ox O2 Del Method 97.4 F L 77 18 174/107 96 Room Air 05/15/25 07:37 05/15/25 07:37 05/15/25 07:37 05/15/25 07:37 05/15/25 07:37 05/15/25 07:37 Preop Diagnosis: need for screening colonoscopy Operation Date: 05/15/25 09:00 Proposed Procedures p Colonoscopy 13292 [id number] Z12.11(Not Applicable) - Benjy Doss MD Familial anesthetic complications: none Was Beta Pam taken within 24 hours: N/A Was Clonidine taken within 24 hours: N/A Last intake: Intake Last Liquid Date 05/14/25 Last Liquid Time 22:00 Last Solid Date 05/13/25 Last Solid Time 20:00 Social No alcohol and No tobacco Exam alert and oriented x 3 Airway Submandibular: within normal limits Cervical ROM: within normal limits Mallampati: Class II Dentition: false History/ROS No significant history except as noted Pulmonary Chronic Obstructive Pulmonary Disease and Sleep Apnea CV/HEM Hypertension None reported Hepatic None reported GI Gastroesophageal Reflux Disease Metabolic Diabetes Mellitus, Hyperlipidemia and Thyroid Disease Musc/skel Fibromyalgia, Lower Back Pain, Rheumatoid Arthritis and Weakness walks with walker and/or cane Neuropsych Depression Anesthetic Plan ASA status: 3 Anesthesia: Anesthesia Evaluation and MAC Risk of > 500 ml blood loss (7ml/kg in children): No Medications/Allergies Home Medications ?Medication ?Instructions ?Recorded ?Confirmed ?Last Taken ?Type naloxone 4 mg/actuation nasal spray 4 mg intranasal Q3M PRN overdose 04/11/22 05/12/25 09/26/24 History lidocaine 5 % topical patch 1 patch topical QDAY #30 ea 03/22/23 05/12/25 11/09/24 Rx hydrocodone 7.5 mg-acetaminophen 1 tab PO Q4H PRN pain #20 tabs 04/18/23 05/12/25 05/12/25 Rx 325 mg tablet dibetic shoes with 3 inserts #1 ea 08/13/24 05/01/25 09/30/24 Rx albuterol sulfate 90 mcg/actuation 2 puff inhalation Q8H PRN 08/23/24 05/12/25 09/30/24 History aerosol inhaler Shortness Of Breath Or Wheezing amlodipine 10 mg tablet 10 mg PO DAILY 08/23/24 05/12/25 05/12/25 History fluticasone furoate 100 1 inh inhalation DAILY 08/23/24 05/12/25 09/30/24 History mcg-vilanterol 25 mcg/dose inhalation powder (Breo Ellipta) furosemide 20 mg tablet 20 mg PO DAILY 08/23/24 05/12/25 05/12/25 History isosorbide mononitrate 30 mg 30 mg PO DAILY 08/23/24 05/12/25 05/12/25 History tablet,extended release 24 hr levothyroxine 25 mcg tablet 25 mcg PO DAILY 08/23/24 05/12/25 05/12/25 History magnesium oxide 400 mg (241.3 mg 400 mg PO BID 08/23/24 05/12/25 05/12/25 History magnesium) tablet nateglinide 120 mg tablet 120 mg PO TID 08/23/24 05/12/25 05/12/25 History pantoprazole 40 mg tablet,delayed 40 mg PO BID 1 month #60 tabs 10/22/24 05/12/25 05/12/25 Rx release (Protonix) lactulose 10 gram/15 mL oral 10 g (15 mL) PO DAILY PRN 11/10/24 05/12/25 Unknown Rx solution constipation #473 mL celecoxib 200 mg capsule 200 mg PO BID 90 days #180 caps 12/02/24 05/12/25 05/12/25 Rx fluticasone propionate 50 1 spray intranasal DAILY PRN 12/27/24 05/12/25 05/10/25 Rx mcg/actuation nasal allergy symptoms 30 days #16 grams spray,suspension gabapentin 300 mg capsule 600 mg (2 x 300 mg) PO TID post 12/27/24 05/12/25 05/12/25 Rx (Neurontin) herpetic neuralgia 30 days #180 caps levocetirizine 5 mg tablet 5 mg PO DAILY 90 days #90 tabs 12/27/24 05/12/25 05/12/25 Rx saliva stimulant comb. no.3 1 applic mucous membrane DAILY PRN 12/27/24 05/12/25 Unknown Rx (Biotene Moisturizing Mouth dry mouth #44.3 mL mucosal spray) Sleep apnea machine and tubing #1 ea 12/31/24 05/01/25 Unknown Rx pen needle, diabetic 32 gauge x #200 ea 01/02/25 05/01/25 Unknown Rx 1/4 bupropion HCl 300 mg 24 hr tablet, 300 mg PO QAM #90 tabs 01/14/25 05/12/25 05/12/25 Rx extended release blood-glucose sensor (Dexcom G7 #9 ea 04/03/25 05/01/25 Unknown Rx Sensor device) artificial tears(hypromellose) 0.3 1 drp ophthalmic (eye) Q12H PRN 04/04/25 05/12/25 Unknown Rx % eye gel dry eyes #10 grams polyvinyl alcohol-povidone 0.5 1 drp ophthalmic (eye) TID PRN dry 04/04/25 05/12/25 Unknown Rx %-0.6 % eye drops (Clear Eyes eye(s) #15 mL Natural Tears) prednisone 20 mg tablet 20 mg PO DAILY 04/04/25 05/12/25 05/12/25 History ondansetron 8 mg disintegrating 8 mg PO Q8H PRN nausea and 04/08/25 05/12/25 Unknown Rx tablet vomiting #3 tabs alendronate 70 mg tablet (Fosamax) 70 mg PO Q7D #12 tabs 05/01/25 05/12/25 Unknown Rx tirzepatide 2.5 mg/0.5 mL 2.5 mg (0.5 mL) SUBCUT Q7D #2 mL 05/01/25 05/12/25 05/04/25 Rx subcutaneous pen injector (Alexander) allopurinol 100 mg tablet 100 mg PO DAILY 30 days #30 tabs 05/05/25 05/12/25 05/12/25 Rx cyclobenzaprine 10 mg tablet 10 mg PO BID PRN Muscle Spasm 05/12/25 05/12/25 05/11/25 History empagliflozin 25 mg tablet 25 mg PO DAILY 05/12/25 05/12/25 05/12/25 History (Jardiance) insulin glargine 100 unit/mL (3 80 unit SUBCUT BID 05/12/25 05/12/25 05/12/25 History mL) subcutaneous pen (Lantus Solostar U-100 Insulin) rosuvastatin 40 mg tablet 40 mg PO DAILY 0805/12/25 05/12/25 History Allergies Allergy/AdvReac Type Severity Reaction Status Date / Time Latex, Natural Rubber Allergy ALGY-Rash Verified 05/12/25 11:43 liraglutide (From Victoza) Allergy ADR-Abdominal Verified 05/12/25 11:43 Pain morphine Allergy unknown Verified 05/12/25 11:43 Penicillins Allergy unknown Verified 05/12/25 11:43 Sulfa (Sulfonamide Allergy unknown Verified 05/12/25 11:43 Antibiotics) Current Medications Generic Name Dose Route Start Last Admin Trade Name Freq PRN Reason Stop Dose Admin Sodium Chloride 1,000 mls @ 15 mls/hr 05/15/25 07:26 05/15/25 07:46 Sodium Chloride 0.9% IV 05/16/25 07: 15 mls/hr .Q24H PRN Administration COLONOSCOPY FLUIDS PFSH Anesthesia Medical History Otitis media, chronic, bilateral Right-sided Meneses's palsy Gout Colon cancer screening Pseudogout of joint of left hand Palmar fasciitis Chronic fatigue Sleep apnea Post herpetic neuralgia Xerostomia Environmental and seasonal allergies Elevated serum creatinine Urinary tract infection Callus between toes Dysphagia DJD of left shoulder Left knee pain Osteoarthritis of left knee Rib pain on right side Enrolled in chronic care management please do not remove from active Lower respiratory infection Sprain, knee Wheezing General weakness Risk for falls Compression fracture of lumbosacral spine Decreased GFR Right sciatic nerve pain Upper respiratory infection Routine lab draw History of abnormal breathing pattern Bilateral lower extremity edema Acute bacterial otitis media Hypomagnesemia Otitis media Diarrhea Otitis media Acute bacterial sinusitis po Right knee pain Acute bacterial sinusitis Oral candidiasis Elevated parathyroid hormone Shortness of breath Breast cancer screening by mammogram Osteoarthritis Bacterial sinusitis Anemia Arthritis of hand Thoracic back pain Abdominal pain Sinusitis Anxiety and depression Vitamin D deficiency Hyperlipidemia associated with type 2 diabetes mellitus Patient has history of Hyperlipidemia and is currently taking Rosuvastatin daily. Hypomagnesemia Patient has recent history of low magnesium level. She takes a supplement at home daily DM II (diabetes mellitus, type II), controlled Patient has DM II for and extended time. She was controlled previously with Victoza but stopped due to abdominal pain. The abdominal pain resolved, but patient has continued elevated glucose. Patient was trialed with Trulicity, but glucose levels remained elevated. Trulicity was discontinued, and patient was started on Rybelsus and Jardiance and continued on Metformin. Patient referred to [facility] Endocr[facility]ology for evaluation and treatment. Diabetic foot Patient is a diabetic with previous history of foot callous formations and under the care of a Floor Manager. She would like to be referred to [facility] Floor Manager, Dr. Melchor. Hypothyroidism Patient has history and current diagnosis of hypothyroidism. She takes Levothyroxine daily, and is compliant with medications and testing. Hypertension Patient has hypertension that is controlled with medication. She checks blood pressure at home. She is under the care of [facility]. Type 2 diabetes mellitus GERD (gastroesophageal reflux disease) COPD (chronic obstructive pulmonary disease) Chronic kidney disease Fibromyalgia Surgical History S/P carpal tunnel release History of esophagogastroduodenoscopy (EGD) H/O colonoscopy Acquired absence of both cervix and uterus H/O lateral meniscus repair of right knee S/P shoulder surgery Repair of right shoulder at [facility] with Dr. Dickson in 2013, then additional repair on right shoulder in [address] [facility] in [place]. S/P abdominal hysterectomy S/P cholecystectomy 2016 Dr. Franco Family History Other Atrial fibrillation Cancer Myocardial infarction Social History Smoking and tobacco/nicotine status: never used tobacco/nicotine Alcohol intake: never Substance/Drug Use: never Data Anesthesia Cardiac Studies: Echocardiogram 06/10/22 Sestamibi Stress Test (Cardiology) 06/10/22
[2025-05-15 09:00] VITALS: BP 132/72; PULSE 75; RESP 18; TEMP 36.1; O2SAT 96
--- NOTE | 2025-05-15 09:41 | ANE.PACU2 ---
Inpatient post-anesthesia follow up: Airway intact: Yes Vital signs: Temperature 97 F Pulse Rate 75 Respiratory Rate 18 Blood Pressure 132/72 Pulse Oximetry 96 Oxygen Delivery Me thod Room Air Oxygen Flow Rate Fraction of Inspir ed Oxygen Hydration adequate: Yes Nausea and vomiting: No Pain level: 1 Mental status: Baseline
== END 2025-05-15 09:41 | disposition home or self-care (01) ==
PROVIDERS: PCP Nurse Practitioner Family; Visit Provider Surgery
PROC: 0DJD8ZZ Inspection of Lower Intestinal Tract, Via Natural or Artificial Opening Endoscopic (ICD-10-PCS; CPT 45378; principal; 2025-05-15 09:00)
DX: Z12.11 Encounter for screening for malignant neoplasm of colon (principal); D12.0 Benign neoplasm of cecum; D12.4 Benign neoplasm of descending colon; H66.93 Otitis media, unspecified, bilateral; G47.30 Sleep apnea, unspecified; Z99.89 Dependence on other enabling machines and devices; F41.8 Other specified anxiety disorders; E78.5 Hyperlipidemia, unspecified; E03.9 Hypothyroidism, unspecified; K21.9 Gastro-esophageal reflux disease without esophagitis; J44.9 Chronic obstructive pulmonary disease, unspecified; M79.7 Fibromyalgia; Z79.4 Long term (current) use of insulin; E11.22 Type 2 diabetes mellitus with diabetic chronic kidney disease; I12.9 Hypertensive chronic kidney disease with stage 1 through stage 4 chronic kidney disease, or unspecified chronic kidney disease; N18.9 Chronic kidney disease, unspecified; D63.1 Anemia in chronic kidney disease; M06.9 Rheumatoid arthritis, unspecified
CPT/HCPCS: 36416; 45385; 82962; 88305; J2704; J7030; J7799

== ENCOUNTER → 2025-06-03 07:45 | Outpatient (BNVA) | payer OTHER, MEDICAID, SELFPAY | PROVIDERS: PCP Nurse Practitioner Family; Visit Provider Surgery | DX: Z09 Encounter for follow-up examination after completed treatment for conditions other than malignant neoplasm (principal) | CPT/HCPCS: 99213 ==

== ENCOUNTER → 2025-07-24 08:48 | Outpatient (BNVA) | payer OTHER, MEDICAID, SELFPAY | PROVIDERS: PCP Nurse Practitioner Family; Visit Provider Nurse Practitioner Family | DX: F41.9 Anxiety disorder, unspecified (principal); F32.9 Major depressive disorder, single episode, unspecified; I10 Essential (primary) hypertension; E11.69 Type 2 diabetes mellitus with other specified complication; E78.5 Hyperlipidemia, unspecified; E11.628 Type 2 diabetes mellitus with other skin complications; E21.0 Primary hyperparathyroidism; M79.7 Fibromyalgia; R79.89 Other specified abnormal findings of blood chemistry | CPT/HCPCS: 80053; 80061; 81003; 82306; 82310; 82570; 83036; 83970; 84156; 84443; 85025; 87086 ==

== ENCOUNTER → 2025-08-08 09:54 | Outpatient (BNVA) | payer OTHER, MEDICAID, SELFPAY | PROVIDERS: PCP Nurse Practitioner Family; Referring Provider Nurse Practitioner Family; Visit Provider Internal Medicine | DX: J44.9 Chronic obstructive pulmonary disease, unspecified (principal); G47.33 Obstructive sleep apnea (adult) (pediatric); Z99.89 Dependence on other enabling machines and devices; Z87.891 Personal history of nicotine dependence | CPT/HCPCS: 99204; Q3014 ==

== ENCOUNTER → 2025-08-25 14:42 | Outpatient (BNVA) | payer OTHER, MEDICAID, SELFPAY | PROVIDERS: PCP Nurse Practitioner Family; Visit Provider Nurse Practitioner Family | DX: J06.9 Acute upper respiratory infection, unspecified (principal) | CPT/HCPCS: 87400; 87426 ==